=== PATIENT | female | born 1945 | race Caucasian/White ===

== ENCOUNTER 2016-10-27 06:25 | Day surgery (SDC) | payer MEDICARE, MEDICAID ==
[2016-10-21 08:23] VITALS: BMI 33.6
[2016-10-27] MEDS ORDERED: Midazolam 2 MG/2 ML VIAL ONE ×3 (09:54→10:06)
[2016-10-27] MEDS ORDERED: ePHEDrine 50 mg/ml Inj ONE (09:54)
[2016-10-27] MEDS ORDERED: Propofol 10 mg/ml Inj (20 ML) ONE ×2 (10:09→10:16)
[2016-10-27] MEDS ORDERED: Iodixanol 320 MG/ML 100 ML BOTTLE IV ONE (10:32)
[2016-10-27] MEDS ORDERED: Lidocaine 2% Inj (20ml) ONE (10:32)
[2016-10-27] MEDS ORDERED: Iodixanol 320 MG/ML 200 ML BOTTLE IV ONE (10:32)
--- NOTE | 2016-10-27 12:50 | PCM.SURG1 ---
Surgeon's Initial Post Op Note - Surgeon's Notes Surgeon: augustin Head Machinist: 0 Type of Anesthesia: IV Sedation Anesthesia Administered By: evan Pre-Operative Diagnosis: pvd tibial disease Operative Findings: severe tibial disease. peroneal major vessel into foot. severe stenosis /occlusion proximal portion Post-Operative Diagnosis: same Operation Performed: see below Specimen/Specimens Removed: aortofemoral angiogram with selective catherization left leg. pathway atherectomy/ balloom angioplasty/ 3.5x37 carlo to proximal peroneal. perclose right femoaral artery Estimated Blood Loss: EBL {In ML}: 50 Blood Products Given: N/A Drains Used: No Drains Post-Op Condition: Good Date of Surgery/Procedure: 10/27/16 Time of Surgery/Procedure: 12:50
[2016-10-27 17:22] VITALS: RESP 18; TEMP 97
[2016-10-27 17:24] VITALS: BP 127/63; PULSE 65; O2SAT 98
--- NOTE | 2016-10-28 04:33 | OP ---
PROCEDURE DATE: 10/27/2016 PREOPERATIVE DIAGNOSIS: Rest pain, left foot. PROCEDURE: Aortofemoral angiogram of the right groin with selective catheterization of the left femoral artery, pathway atherectomy of the left peroneal artery and balloon angioplasty of this and then subsequent deployment of a 3.5 x 37 mm long drug-eluting stent in the proximal peroneal artery. SURGEON: Dr. Martinez. RESEARCH COORDINATOR: None. TYPE OF ANESTHESIA: Text. ANESTHESIA ADMINISTERED BY: Mr. Saurav CRNA. The patient is an older woman with diabetes, chronic problems of the leg, treated a year ago with successful results, now with recurrent symptoms. OPERATIVE FINDINGS: The aortorenal arteries, iliac arteries, common femoral arteries, superficial femoral arteries were free of significant occlusive disease as well as the profunda femoris. On the right side, detailed pictures were not taken below the level of the proximal tibial vessels which showed that these were patent on the right side. On the left side, all 3 tibial vessels were occluded, the anterior tibial occluded distally, did not reconstitute the foot. The posterior tibial artery occluded distally and did reconstitute distally. The peroneal artery, however, was the main vessel at the foot. Initially, we were able to pass the stiff angle guidewire with aortic bifurcation by positioning the catheter in the distal portion of the femoral popliteal artery. Then using variety of techniques, we were able to cross this lesion using the atherectomy device. The pathway atherectomy device technical problems within on the wire, which required its removal. We then ballooned this with a variety of 2.5 and 3 mm balloons. Subsequent results were suboptimal and in view of the fact that this is a recurrent lesion, we then deployed a 3.5 mm drug-eluting stent in its position with excellent cosmetic results and the procedure was terminated. A Perclose device was then deployed in the right groin. The operation carried out, aortofemoral angiogram with selective catheterization of the left femoral artery. Pathway atherectomy in the left peroneal artery, balloon angioplasty, and following deployment of 3.5 x 37 mm stent in the proximal portion of the peroneal artery. The patient tolerated the procedure uneventfully and a Perclose device was deployed in the right groin. Spenser Martinez Jr., MD cc: Dr. Aponte.
== END 2016-10-27 17:34 | disposition home or self-care (01) ==
LOC: C.SPRAD 06:25
PROVIDERS: ATTEND Surgery Vascular Surgery
DX: I70.222 Atherosclerosis of native arteries of extremities with rest pain, left leg (principal)
CPT/HCPCS: 36247; 37231; 75625; 75716; 75774; 82948; C1724; C1725; C1760; C1766; C1769; C1884; C1887; C1894; J1644; J2250; J2704; J3010; Q9966; Q9967

== ENCOUNTER 2018-01-03 14:22 | Inpatient (IN) | payer MEDICARE, MEDICAID ==
[2018-01-03 14:22] VITALS: BMI 30.6
--- NOTE | 2018-01-03 16:46 | C.PDOC ---
History Of Present Illness 72-year-old female, PMHx of weakness associated with dizziness and increased falls over the past several weeks, pt admitted to medical center and diagnosed with stoke, then however, patients weakness has worsened over last several days, prompting visit. Pt is also complaining of a severe headache. Denies abdominal pain, chest pain, or any other associated symptoms. No other complaints at this time. <Lana Jones - Last Filed: 01/03/18 18:54> History Per: Patient History/Exam Limitations: no limitations Current Symptoms Are (Timing): Still Present <Lana Jones - Last Filed: 01/03/18 18:54> <Dalia Phelps - Last Filed: 01/03/18 19:25> Time Seen by Provider: 01/03/18 16:15 Chief Complaint (Nursing): Weakness/Neurological Deficit Past Medical History Reviewed: Historical Data, Nursing Documentation, Vital Signs Vital Signs: Last Vital Signs Temp 98.4 F 01/03/18 14:31 Pulse 73 01/03/18 14:31 Resp 18 01/03/18 14:31 BP 183/84 H 01/03/18 14:31 Pulse Ox 100 01/03/18 14:31 - Medical History PMH: Gastritis, HTN, Hypercholesterolemia, Pneumonia (3 YRS AGO) Denies: HIV, Chronic Kidney Disease Surgical History: Endoscopy - [facility] Procedures BATH/SHOWER TECHNQ TREATMENT USING ASSIST EQUIPMENT (07/09/17) BED MOBILITY TREATMENT USING ASSIST EQUIPMENT (07/09/17) COMMUNICATIVE/COGNITIVE INTEGRATION SKILLS TREATMENT (07/09/17) DRESSING TECHNIQUES TREATMENT USING ASSIST EQUIPMENT (07/09/17) GAIT TRAINING/FUNCTIONAL AMBULATION TREATMENT (07/09/17) TRANSFER TRAINING TREATMENT USING ASSIST EQUIPMENT (07/09/17) Family History: States: No Known Family Hx - Social History Hx Alcohol Use: No Hx Substance Use: No - Immunization History Hx Tetanus Toxoid Vaccination: No Hx Influenza Vaccination: No Hx Pneumococcal Vaccination: No <Lana Jones - Last Filed: 01/03/18 18:54> Vital Signs: Last Vital Signs Temp 98.4 F 01/03/18 14:31 Pulse 83 01/03/18 18:39 Resp 18 01/03/18 18:39 BP 139/66 01/03/18 18:41 Pulse Ox 100 01/03/18 18:55 - [facility] Procedures BATH/SHOWER TECHNQ TREATMENT USING ASSIST EQUIPMENT (07/09/17) BED MOBILITY TREATMENT USING ASSIST EQUIPMENT (07/09/17) COMMUNICATIVE/COGNITIVE INTEGRATION SKILLS TREATMENT (07/09/17) DRESSING TECHNIQUES TREATMENT USING ASSIST EQUIPMENT (07/09/17) GAIT TRAINING/FUNCTIONAL AMBULATION TREATMENT (07/09/17) TRANSFER TRAINING TREATMENT USING ASSIST EQUIPMENT (07/09/17) <Dalia Phelps - Last Filed: 01/03/18 19:25> Review Of Systems Constitutional: Positive for: Weakness. Negative for: Fever Respiratory: Negative for: Shortness of Breath Gastrointestinal: Negative for: Vomiting Skin: Negative for: Rash Neurological: Negative for: Weakness, Numbness, Headache <Lana Jones - Last Filed: 01/03/18 18:54> Physical Exam - Physical Exam Appears: Non-toxic, No Acute Distress, Chronically Ill Skin: Warm, Dry, No Rash Head: Atraumatic, Normacephalic Eye(s): bilateral: Normal Inspection Nose: Normal Oral Mucosa: Moist Lips: Normal Appearing Neck: Normal ROM Chest: Symmetrical Cardiovascular: Rhythm Regular, No Murmur Respiratory: Normal Breath Sounds, No Accessory Muscle Use Extremity: Pedal Edema (+1 edema, pitting B/L ), Other Pulses: Left Dorsalis Pedis: Normal, Right Dorsalis Pedis: Normal Neurological/Psych: Other (decreased sensation and strength on left leg and arm) <Lana Jones C - Last Filed: 01/03/18 18:54> ED Course And Treatment - Laboratory Results Result Diagrams: 01/03/18 17:04 01/03/18 17:04 ECG: Interpreted By Me, Viewed By Me ECG Rhythm: Sinus Rhythm ECG Interpretation: No Acute Changes Interpretation Of ECG: T wave inversion in 2, 1 and avl. v5 and V6 Rate From EC O2 Sat by Pulse Oximetry: 100 Pulse Ox Interpretation: Normal (RA) <Lana Jones - Last Filed: 01/03/18 18:54> - Laboratory Results Result Diagrams: 01/03/18 17:04 01/03/18 17:04 <Dalia Phelps - Last Filed: 01/03/18 19:25> Medical Decision Making Medical Decision Making: The case was discussed with Dr. Singh who agrees to admit the patient to his service. <Lana Jones - Last Filed: 01/03/18 18:54> Disposition - Disposition Disposition Time: 17:55 <Lana Jones - Last Filed: 01/03/18 18:54> <Dalia Phelps M - Last Filed: 01/03/18 19:25> - Disposition Disposition: HOSPITALIZED Condition: STABLE Instructions: Weakness (ED) Forms: [employer] (Irish) - Clinical Impression Clinical Impression: Dizziness, Unsteady gait, Weakness - Scribe Statement The provider has reviewed the documentation as recorded by the Scribe (Amarilis Junior) All medical record entries made by the Scribe were at my direction and personally dictated by me. I have reviewed the chart and agree that the record accurately reflects my personal performance of the history, physical exam, medical decision making, and the department course for this patient. I have also personally directed, reviewed, and agree with the discharge instructions and disposition. <Lana Jones - Last Filed: 01/03/18 18:54> - PA / INSURANCE BUSINESS ANALYST / Resident Statement / has reviewed & agrees with the documentation as recorded. <Dalia Phelps M - Last Filed: 01/03/18 19:25>
[2018-01-03 17:10] LABS: BASO % 1.1 % (0.0-2.0); EOS # 0.1 K/uL (0.0-0.7); EOS % 1.9 % (0.0-4.0); HEMOGLOBIN 12.5 g/dL (11.0-16.0); LYMPH # 1.8 K/uL (1.0-4.3); LYMPH % 43.6 % (20.0-40.0); MEAN CELL VOLUME 86.4 fL (81.0-99.0); MEAN CORPUSCULAR HEMOGLOBIN 28.2 pg (27.0-31.0); MEAN CORPUSCULAR HGB CONC 32.7 g/dL (33.0-37.0); MEAN PLATELET VOLUME 9.3 fL (7.2-11.7); MONO # 0.4 K/uL (0.0-0.8); NEUT # 1.9 K/uL (1.8-7.0); NEUT % 44.4 % (50.0-75.0); NRBC % 0.1 % (0.0-2.0); RBC 4.43 Mil/uL (3.80-5.20); RED CELL DISTRIBUTION WIDTH 13.1 % (11.5-14.5); WHITE BLOOD COUNT 4.2 K/uL (4.8-10.8)
[2018-01-03 17:18] LABS: PROTHROMBIN TIME 11.4 SECONDS (9.7-12.2)
[2018-01-03 17:25] LABS: ALB/GLOB RATIO 1.6 (1.0-2.1); ALBUMIN 4.4 g/dL (3.5-5.0); ALT/SGPT 17 U/L (9-52); AST/SGOT 14 U/L (14-36); BLOOD UREA NITROGEN 27 mg/dL (7-17); GFR NON-AFRICAN AMERICAN > 60; HDL CHOLESTEROL 50 mg/dL (30-70)
[2018-01-03 17:36] LABS: B-TYPE NATRIURETIC PEPTIDE 63.9 pg/mL (0-900)
[2018-01-03 17:37] LABS: LDL CHOLESTEROL 129 mg/dL (0-129)
--- NOTE | 2018-01-03 17:37 | CT ---
Date of service: 01/03/2018 PROCEDURE: CT HEAD WITHOUT CONTRAST. HISTORY: severe headache COMPARISON: None available. TECHNIQUE: Axial computed tomography images were obtained through the head/brain without intravenous contrast. Radiation dose: Total exam DLP = 1045.29 mGy-cm. This CT exam was performed using one or more of the following dose reduction techniques: Automated exposure control, adjustment of the mA and/or kV according to patient size, and/or use of iterative reconstruction technique. FINDINGS: Streak artifact obscures evaluation of the skull base. HEMORRHAGE: No intracranial hemorrhage. BRAIN: Diffuse atrophy with prominence of the ventricles and sulci noted. No mass effect or edema. Dense intracranial atherosclerosis. Right temporal/parietal lobe hypodense region consistent with encephalomalacia due to chronic ischemia. Acute on chronic ischemia cannot be excluded. Scattered periventricular and subcortical white matter hypodensities, which are nonspecific, but often seen with chronic microvascular ischemic disease. Please note that MRI with diffusion imaging is more sensitive in the detection of acute ischemic event. VENTRICLES: No hydrocephalus. CALVARIUM: Unremarkable. PARANASAL SINUSES: Unremarkable as visualized. No significant inflammatory changes. MASTOID AIR CELLS: Unremarkable as visualized. No inflammatory changes. OTHER FINDINGS: None. IMPRESSION: Right temporal/parietal lobe hypodense region consistent with encephalomalacia due to chronic ischemia. Acute on chronic ischemia cannot be excluded. Please note that MRI with diffusion imaging is more sensitive in the detection of acute ischemic event. Nonspecific white matter changes. Diffuse atrophy with prominence of the ventricles and sulci noted.
--- NOTE | 2018-01-03 17:49 | RAD ---
Date of service: 01/03/2018 HISTORY: Code Stroke COMPARISON: No prior. FINDINGS: LUNGS: No active pulmonary disease. PLEURA: No significant pleural effusion identified, no pneumothorax apparent. CARDIOVASCULAR: No radiographic findings to suggest acute or significant cardiovascular disease. OSSEOUS STRUCTURES: No significant abnormalities. VISUALIZED UPPER ABDOMEN: Normal. OTHER FINDINGS: None. IMPRESSION: No active disease.
[2018-01-03] MEDS ORDERED: Metoprolol 1 mg/ml Inj IVP STA (18:21)
[2018-01-03] MEDS ORDERED: Aspirin 325 mg EC Tablets PO STA (18:32)
[2018-01-03] MEDS ORDERED: Aspirin 325 mg EC Tablets PO ONE (18:38)
[2018-01-04] MEDS ORDERED: Albuterol HFA 90 mcg/actuation (8 g) IH PRN (01:05)
[2018-01-04] MEDS ORDERED: Docusate-Senna 50 mg-8.6 mg Tab PO PRN (01:07)
[2018-01-04] MEDS ORDERED: Fluticasone Nasal 50 mcg/Spray NAS PRN (01:21)
[2018-01-04] MEDS: Levothyroxine 88 MCG TAB PO SCH (06:11)
[2018-01-04 07:38] LABS: BASO # 0.1 K/uL (0.0-0.2); BASO % 1.5 % (0.0-2.0); EOS # 0.1 K/uL (0.0-0.7); EOS % 2.8 % (0.0-4.0); HEMOGLOBIN 12.2 g/dL (11.0-16.0); LYMPH # 1.8 K/uL (1.0-4.3); LYMPH % 46.5 % (20.0-40.0); MEAN CELL VOLUME 86.4 fL (81.0-99.0); MEAN CORPUSCULAR HGB CONC 32.3 g/dL (33.0-37.0); MEAN PLATELET VOLUME 9.3 fL (7.2-11.7); MONO # 0.4 K/uL (0.0-0.8); MONO % 10.8 % (0.0-10.0); NEUT # 1.5 K/uL (1.8-7.0); NEUT % 38.4 % (50.0-75.0); NRBC % 0.1 % (0.0-2.0); RBC 4.37 Mil/uL (3.80-5.20); RED CELL DISTRIBUTION WIDTH 13.3 % (11.5-14.5); WHITE BLOOD COUNT 3.8 K/uL (4.8-10.8)
[2018-01-04 08:05] LABS: ALB/GLOB RATIO 1.6 (1.0-2.1); ALBUMIN 4.1 g/dL (3.5-5.0); ALT/SGPT 17 U/L (9-52); AST/SGOT 23 U/L (14-36); BLOOD UREA NITROGEN 21 mg/dL (7-17); GFR NON-AFRICAN AMERICAN > 60; HDL CHOLESTEROL 47 mg/dL (30-70)
[2018-01-04 08:20] LABS: LDL CHOLESTEROL 128 mg/dL (0-129)
[2018-01-04 08:27] LABS: T4 6.61 ug/dL (5.5-11.0)
[2018-01-04 08:44] LABS: T3 1.47 nmol/L (1.49-2.60)
[2018-01-04] MEDS ORDERED: Pneumococcal 23-Valent Vaccine IM ONE (10:00)
[2018-01-04] MEDS ORDERED: Fluticasone Nasal 50 mcg/Spray NS SCH (10:00)
[2018-01-04] MEDS: Multiple Vitamins Tab PO SCH (10:58)
[2018-01-04] MEDS: Divalproex 500 mg ER Tab PO SCH ×2 (10:58→22:37)
[2018-01-04] MEDS: Pantoprazole 40 mg EC Tab PO SCH (11:12)
[2018-01-04] MEDS: Simethicone 80 mg Chewtab PO SCH ×4 (11:12→22:37)
[2018-01-04] MEDS: (Novolog) Insulin Aspart, Recombinant 100 u/ml 10 ml vial SC SCH ×3 (12:41→22:09)
[2018-01-04] MEDS: Enoxaparin 40 mg Syringe SC SCH (12:41)
--- NOTE | 2018-01-04 14:37 | VASCLAB ---
Date of service: 01/04/2018 PROCEDURE: Carotid Duplex Exam. HISTORY: Dizziness COMPARISON: None available. TECHNIQUE: Grayscale and duplex Doppler evaluation of the cervical carotid and vertebral arteries were performed. The common carotid, carotid bifurcations and cervical Internal Carotid Artery (ICA) and proximal External Carotid Artery (ECA) were evaluated. The vertebral arteries were evaluated for gross patency and flow direction. Report prepared by REUBEN Xie FINDINGS: RIGHT CAROTID ARTERIES: 1. Common Carotid Artery: No significant focal plaque formation of the right common carotid artery. Maximum Peak Systolic velocity: 73 cm/sec: End-diastolic velocity 9 cm/sec. 2. Carotid Bifurcation: plaque formation. Maximum Peak Systolic velocity: 73 cm/sec: End-diastolic velocity 8 cm/sec. 3. Internal Carotid Artery: Plaque description: 3.1. Proximal Segment: Peak systolic velocity 54 cm/sec: End-diastolic velocity 13 cm/sec - % stenosis 0-15% 3.2. Middle Segment: Peak systolic velocity 55 cm/sec: End-diastolic velocity 10 cm/sec - % stenosis 0-15% 3.3. Distal Segment: Peak systolic velocity 58 cm/sec: End-diastolic velocity 11 cm/sec - % stenosis 0-15% 4. External Carotid Artery: No significant focal plaque formation. Peak systolic velocity 87 cm/sec 5. ICA/CCA Ratio: 1.0 LEFT CAROTID ARTERIES: 1. Common Carotid Artery: No significant focal plaque formation of the left common carotid artery. Maximum Peak Systolic velocity: 87 cm/sec: End-diastolic velocity 13 cm/sec. 2. Carotid Bifurcation: Calcific plaque formation. Maximum Peak Systolic velocity: 68 cm/sec: End-diastolic velocity 10 cm/sec. 3. Internal Carotid Artery: Plaque description: Calcific 3.1. Proximal Segment: Peak systolic velocity 64 cm/sec: End-diastolic velocity 14 cm/sec - % stenosis 0-15% 3.2. Middle Segment: Peak systolic velocity 79 cm/sec: End-diastolic velocity 18 cm/sec - % stenosis 0-15% 3.3. Distal Segment: Peak systolic velocity 95 cm/sec: End-diastolic velocity 14 cm/sec - % stenosis 0-15% 4. External Carotid Artery: No significant focal plaque formation. Peak systolic velocity 98 cm/sec 5. ICA/CCA Ratio: 1.1 VERTEBRAL ARTERIES: 1. Right Vertebral Artery: The right vertebral artery flow direction is antegrade. 2. Left Vertebral Artery: The left vertebral artery flow direction is antegrade. OTHER FINDINGS: None. IMPRESSION: RIGHT: Duplex scan does not suggest hemodynamically significant stenosis of the right extracranial carotid arteries. LEFT: Duplex scan does not suggest hemodynamically significant stenosis of the left extracranial carotid arteries.
--- NOTE | 2018-01-04 15:07 | CARD ---
APPROVED REPORT Date of service: 01/04/2018 EXAM: Two-dimensional and M-mode echocardiogram with Doppler and color Doppler. Other Information Quality : GoodRhythm : INDICATION CVA/TIA Dizziness and Vertigo RISK FACTORS Hypertension Hyperlipidemia 2D DIMENSIONS IVSd1.8 (0.7-1.1cm)LVDd3.9 (3.9-5.9cm) PWd1.6 (0.7-1.1cm)LA Zwbdde38 (18-58mL) LVDs2.2 (2.5-4.0cm)FS (%) 42.9 % LVEF (%)74.6 (>50%)LVEF (Blackwell's)75.70 % IVC0.00 cm M-Mode DIMENSIONS RVDd2.05 (2.1-3.2cm)Left Atrium (MM)3.25 (2.5-4.0cm) IVSd1.79 (0.7-1.1cm)Aortic Root2.94 (2.2-3.7cm) LVDd4.10 (4.0-5.6cm)Aortic Cusp Exc.1.87 (1.5-2.0cm) PWd1.46 (0.7-1.1cm)FS (%) 40 % LVDs2.47 (2.0-3.8cm)LVEF (%)71 (>50%) Mitral Valve MV E Zzmlgggm48.6cm/sMV A Sqdepncq42.7cm/sE/A ratio0.5 TDI Lateral E' Peak V4.48cm/sMedial E' Peak V4.62cm/sE/Lateral E'7.9 E/Medial E'7.7 Tricuspid Valve TR Peak Bgjulipt122uj/sTR Peak Gr.73xxCmAWZE11xnOf LEFT VENTRICLE The left ventricle is normal size. There is mild to moderate concentric left ventricular hypertrophy. The left ventricular systolic function is normal. The left ventricular ejection fraction is within the normal range. There is normal LV segmental wall motion. Transmitral Doppler flow pattern is Grade I-abnormal relaxation pattern. RIGHT VENTRICLE The right ventricle is normal size. The right ventricular systolic function is normal. ATRIA The left atrium size is normal. The right atrium size is normal. AORTIC VALVE The aortic valve is normal in structure. No aortic regurgitation is present. There is no aortic valvular stenosis. MITRAL VALVE The mitral valve is normal in structure. There is no mitral valve regurgitation noted. TRICUSPID VALVE The tricuspid valve is normal in structure. There is mild tricuspid regurgitation. Right ventricular systolic pressure is estimated at less than 30 mmHg. PULMONIC VALVE The pulmonary valve is normal in structure. There is mild pulmonic valvular regurgitation. GREAT VESSELS The aortic root is normal in size. The IVC is normal in size and collapses >50% with inspiration. PERICARDIAL EFFUSION There is no pericardial effusion. There is no pericardial effusion. <Conclusion> There is mild to moderate concentric left ventricular hypertrophy. The left ventricular systolic function is normal. Diastolic dysfunction Grade I-abnormal relaxation pattern. The right ventricular systolic function is normal. Mild tricuspid and pulmonic regurgitation. No pericardial effusion.
--- NOTE | 2018-01-04 16:52 | CARD ---
APPROVED REPORT Date of service: 01/03/2018 EKG Measurement Heart [id number] RI 148P [id number] <Conclusion> Non-sinus atrial rhythm - High junctional LVH with repolarization abnormality. Abnormal ECG
--- NOTE | 2018-01-04 20:55 | CON ---
DATE: 01/04/2018 CHIEF COMPLAINT: Generalized weakness and dizziness. HISTORY OF PRESENT ILLNESS: This is a 72-year-old woman with history of hypertension, history of hypercholesterolemia, who came in with worsening weakness especially on the left side, dizziness, and increased falls over the past several weeks. The patient was admitted to [facility] and found to have a right temporoparietal infarct and some mild residual left-sided weakness. However, the patient started to notice that she was more weaker over the past few days and had severe debilitating headache. She had elevated systolic pressure of more than 180. Currently, she has mild residual left-sided weakness from the prior CVA. CAT scan of the head showed encephalomalacia on the right temporoparietal area, likely consistent with a chronic infarct, possible subacute and with chronic ischemic changes. She had elevated BUN and she was mildly dehydrated with some hyperglycemic discolorations and elevated systolic blood pressures. PAST MEDICAL HISTORY: As above. SOCIAL HISTORY: No illicit drug abuse, smoking, or EtOH abuse. FAMILY HISTORY: Noncontributory. MEDICATIONS: Medications reviewed by nurse reconciliation sheet. REVIEW OF SYSTEMS: A 14-point review of systems negative except in the HPI. ALLERGIES: NO KNOWN DRUG ALLERGIES. LABORATORY DATA: Sodium is 139, potassium is 3.9, chloride is 97, carbon dioxide is 29, BUN is 17, creatinine is 0.7, random glucose of 202. A1c is 6.9. Thyroid: Her free T4 is 0.71; T3 is 1.47, which is low; and total TSH is 3.45. PHYSICAL EXAMINATION: VITAL SIGNS: Temperature is 97.8, pulse rate is 61, blood pressure 159/85, respiratory rate is 20, oxygen saturation 100% on room air. GENERAL: The patient is sitting up in bed, in no acute distress. HEENT: Head is atraumatic, normocephalic. PERRLA. Extraocular movements intact. NECK: Supple. No JVD. No adenopathy noted. LUNGS: Clear to auscultation. No adventitious sounds. HEART: S1 and S2. Normal rate and rhythm. No murmurs, rubs, or gallops. ABDOMEN: Soft, nontender, nondistended. Bowel sounds present. EXTREMITIES: No clubbing. No cyanosis. Peripheral pulses are 2+ bilaterally. NEURO: The patient is alert and oriented to person and place. Recall after five minutes is 1/3. Poor attention span. Slow thought process. Cranial nerves II through XII are intact. Motor exam has mild residual left-sided weakness and decreased left finger tap compared to the right from prior CVA. Sensory exam: Decreased light touch to pinprick up to the calves bilaterally, decreased vibration of the toes. DTRs are 2+ throughout and 1 at both knees and ankles. Coordination: Dakfiq-up-sghi intact. No dysmetria noted. Gait is deferred for now. 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 She had elevated systolic blood pressures and hyperglycemic accelerations with an A1c of 6.9, became borderline diabetic. She has hypothyroid, on levothyroxine. I was called to evaluate. CAT scan of the head shows chronic encephalomalacia of the right temporoparietal area indicating prior large infarct which corresponds to the weakness. She also was mildly dehydrated. A prior Doppler showed proximal ICA stenosis with antegrade flow in the vertebral arteries. Echocardiogram shows left ventricular hypertrophy and adequate ejection fraction. At this time, she has residual weakness from prior cerebrovascular accident with some underlying mild neuropathy, which is indicating her poor balance. In addition, the dizziness is blood pressure and hyperglycemic related and is also deconditioned. RECOMMENDATIONS: We will recommend: 1. Keep her systolic blood pressure at 130s to 140s and diastolic 70s to 80s. Avoid dropping the blood pressure too fast. 2. Keep her blood sugars between 140 to 180 and advised a diabetic diet. 3. Aspirin 81 mg, Plavix 75 mg, and Lipitor 40 mg for stroke prevention. 4. Continue with Aricept for cognitive impairment from CVA, 5 mg p.o. nightly. 5. If there is no neuropathic pain, we will consider to hold the gabapentin and give only if needed and will likely need some subacute rehab. At this time, we will get an MRI of the brain to see if any acute infarct and MRI of the head to assess any structural abnormalities in the vessels and PT/OT evaluation. Thank you for this consult. Wilberto Sykes MD [facility] # [id number]
[2018-01-04] MEDS: Insulin Detemir 100 units/ml Vial (Levemir) SC SCH (22:36)
--- NOTE | 2018-01-05 01:35 | CON ---
DATE: 01/04/2018 REASON FOR CONSULTATION: Dizziness and recurrent falls. HISTORY OF PRESENT ILLNESS: The patient is a 72-year-old female, originally from [facility] who is a [employer], who has a history of breast CA in the past, underwent a right mastectomy, history of CVA who left hemiparesis. She presented because of dizziness, headaches, and recurrent falls. The patient has retrosternal chest pain and is unaware of any history of heart attack in the past. SOCIAL HISTORY: The patient is a nonsmoker. She is a [employer]. MEDICATIONS: Hydralazine 20 mg p.o. every 8 hours, Aricept 5 mg at bedtime, aspirin 81 mg once a day, clonidine 0.2 mg daily, Cozaar 100 mg daily, Crestor 40 mg once a day, Depakote 500 mg p.o. twice a day, Flonase one nasal spray p.r.n., metformin 1 g twice a day, Januvia 50 mg twice a day, Lasix 20 mg p.o. once a day, Levemir 10 units subcutaneous at bedtime, Lovenox 40 mg subcutaneous once a day, Neurontin 200 mg p.o. every 6 hours, Norvasc 5 mg once a day, Plavix 75 mg once a day, Synthroid 88 mcg once a day, Topamax 50 mg p.o. every 12 hours, Protonix 40 mg p.o. once a day, albuterol inhaler one puff every 4 hours. REVIEW OF SYSTEMS: The patient denies any history of significant chest pain at this time. At this time, she complains of headache. She denies any nausea or vomiting. PHYSICAL EXAMINATION: GENERAL: The patient is an elderly female who does not appear to be in acute distress. VITAL SIGNS: Blood pressure 169/82, heart rate 61, temperature 98.4, respirations 20. HEENT: No pallor or icterus. NECK: No JVD. CHEST: Clear. HEART: S1 and S2 regular. ABDOMEN: Soft. EXTREMITIES: No edema. LABORATORY DATA: SMA-7, sodium 139, potassium 3.9, chloride 97, CO2 of 29, glucose 102, BUN 21, creatinine 0.7. TSH level is within normal limits. One set of troponin is negative. Hemoglobin and hematocrit 12.2 and 37.8. White count 3.8, platelet count 247,000. EKG revealed ectopic atrial rhythm. Minimal voltage criteria for LVH. T-wave abnormality. Consider lateral ischemia; however, it is most likely repolarization changes in my own review. Head CT scan without contrast revealed right temporoparietal lobe hypodense lesion consistent with encephalomalacia due to chronic ischemia, acute on chronic ischemia cannot be excluded. Please note that MRI with diffuse imaging is more sensitive and of acute ischemic event. ASSESSMENT: 1. Uncontrolled hypertension. 2. Hypothyroidism. 3. History of cerebrovascular accident with residual right temporal parietal lobe encephalomalacia and acute cerebrovascular accident cannot be really excluded on the CAT scan finding itself. 4. Uncontrolled diabetes mellitus. 5. Uncontrolled systolic hypertension. 6. Periods of sinus bradycardia. RECOMMENDATIONS: Continue hydralazine 50 mg p.o. every 8 hours which was started today. Continue aspirin 81 mg once a day. Hold clonidine if heart rate is below 60. Continue Cozaar 100 mg once a day. Continue Lasix 20 mg p.o. once a day, subcutaneous Lovenox 40 mg once a day, Norvasc at 5 mg once a day, Plavix 75 mg once a day, Synthroid 88 mcg once a day. I will follow echocardiographic study performed today. Patrick Liao MD
[2018-01-05] MEDS: Pantoprazole 40 mg EC Tab PO SCH (05:47)
[2018-01-05] MEDS: Levothyroxine 88 MCG TAB PO SCH (06:14)
--- NOTE | 2018-01-05 07:51 | HP ---
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 The patient was complaining of dizziness, refers having difficulty walking, and also the patient had claimed having multiple falls and weakness of the left lower extremity. The patient has few months ago, but had physical therapy in subacute, but, however, the patient recently started having this dizziness, and in the floor, the patient was advised to go to the emergency room for evaluation and to be admitted. ALLERGY: THE PATIENT HAS NO KNOWN ALLERGY. PAST MEDICAL HISTORY: The patient has history of CVA, hypertension, diabetes, dementia, questionable seizure, and chronic kidney disease. SOCIAL HISTORY: The patient is in [employer] as a [employer] and has no history of smoking or alcohol abuse. PAST SURGICAL HISTORY" The patient has other past history of right mastectomy for breast CA and also cardiac cauterization, and also the patient had stent to the left popliteal arteries. FAMILY HISTORY: No inherited disease. REVIEW OF SYSTEMS: RESPIRATORY SYSTEM: The patient denied any shortness of breath. CARDIOVASCULAR: The patient admits to having some palpitation at times. GI: No nausea or vomiting. : No dysuria. NEURO: The patient is feeling weak, and also multiple falls, and the patient at times is forgetful. PHYSICAL EXAMINATION: GENERAL: The patient is alert and awake, but confused and forgetful at times. VITAL SIGNS: Blood pressure is 167/71 at admission, pulse is 55, respirations 20, temperature 98.2. HEENT: Head is normocephalic. NECK: Supple. No JVD. CHEST: She has a left mastectomy, so there is a wire for in the chest. LUNGS: Clear. HEART: Regular rate and rhythm, large murmur noted, mostly at the left border of the sternum. ABDOMEN: Soft, nontender. EXTREMITIES: There is no edema. LABORATORY DATA: The patient had the tests done. WBC 4.2, hemoglobin 12.7, hematocrit 38.3, and platelets are 248. Chemistry: Sodium 139, potassium 3.9, chloride 97, bicarb is 29, BUN 21, creatinine 0.7, glucose 202, calcium 10, AST 23, ALT 17, alkaline phosphatase 235, and TSH is 245, HDL Cholesterol 47, and free T4 is 0.71. The patient also had CT of the head. CT of the head that showed a thick artifact obscured evaluation . No intracranial hemorrhage, and the carotid Doppler is within normal limits and the echocardiogram is showing ejection fraction of 71%. IMPRESSION: The patient was admitted with diagnoses of: 1. Dizziness. 2. Multiple falls. 3. Cerebrovascular accident. 4. Hypertension. 5. Dementia. 6. Coronary artery disease. 7. Peripheral vascular disease. 8. Diabetes. 9. Seizure. The patient had a neuro consult with Dr. Sykes and also had a cardiology consult with Dr. Liao. The case was discussed with KYLIE Epps, the nurse practitioner. Eduard Singh MD
[2018-01-05] MEDS: (Novolog) Insulin Aspart, Recombinant 100 u/ml 10 ml vial SC SCH ×4 (08:30→21:38)
[2018-01-05] MEDS: Simethicone 80 mg Chewtab PO SCH ×4 (09:36→21:37)
[2018-01-05] MEDS: Multiple Vitamins Tab PO SCH (09:36)
[2018-01-05] MEDS: Divalproex 500 mg ER Tab PO SCH (09:37)
[2018-01-05] MEDS: Enoxaparin 40 mg Syringe SC SCH (09:38)
[2018-01-05] MEDS ORDERED: Influenza Vaccine 60 MCG/0.5 ML SYR (3 yr & up) IM ONE (10:00)
--- NOTE | 2018-01-05 21:09 | PN ---
DATE: 01/05/2018 SUBJECTIVE: The patient denied any dizziness or chest pain. PHYSICAL EXAMINATION: VITAL SIGNS: Blood pressure 147/69, heart rate 70, temperature 98.2, respirations 20. HEENT: Loss of left nasolabial fold. CHEST: Clear. HEART: S1, S2 regular. ABDOMEN: Soft. EXTREMITIES: No edema. LABORATORIES: Today's blood sugars were 143 and 173. Carotid Doppler duplex revealed no hemodynamically significant stenosis of the right or left extracranial carotid arteries. ASSESSMENT: 1. History of cerebrovascular accident with residual right temporoparietal lobe encephalomalacia, residual left hemiplegia. 2. Rule out acute cerebrovascular accident. 3. Uncontrolled diabetes mellitus. 4. Systolic hypertension. 5. Episodes of sinus bradycardia. 6. Hypothyroidism. RECOMMENDATIONS: Continue hydralazine 50 mg p.o. every 8 hours, Aricept 5 mg once a day, aspirin 81 mg once a day, Cozaar 100 mg once a day, Crestor 40 mg once a day, metformin at 1 g twice a day, clonidine 0.2 mg orally daily, Januvia 50 mg p.o. twice a day, Lovenox 40 mg subcutaneous once a day, Neurontin 200 mg every 6 hours, Norvasc 5 mg once a day, Plavix 75 mg once a day, Topamax 50 mg p.o. twice a day, albuterol inhaler 1 puff every 4 hours p.r.n. Because of the patient's recent loop monitor placement by Dr. Salcedo [facility], brain MRI will be postponed until the patient is evaluated by Dr. Salcedo. In the meantime, I did review the echocardiographic study report, which revealed [id number] concentric LVH with normal ejection fraction with grade 1 abnormal relaxation pattern. Patrick Liao MD
[2018-01-05] MEDS: Insulin Detemir 100 units/ml Vial (Levemir) SC SCH (21:36)
[2018-01-05] MEDS: Divalproex 500 mg DR Tab PO SCH (23:54)
--- NOTE | 2018-01-06 00:12 | PN ---
DATE: 01/05/2018 SUBJECTIVE: Today, the patient is somewhat drowsy, not responding well to questions and stating that she does not feel good and complaining of some weakness to right side of the face and dizziness. PHYSICAL EXAMINATION: VITAL SIGNS: The patient has a blood pressure of 123/71, but later on the blood pressure is 92/50; pulse is 55, respiration is 20; temperature 98.1. NECK: Supple. HEENT: Head is normocephalic. Face, there is some drooling of the right side of the face. LUNGS: Clear. HEART: Regular rate and rhythm. ABDOMEN: Soft and nontender. No possible mass. EXTREMITIES: There is no edema, but there is a weakness in the right side, right hemiparesis. LABORATORY DATA: The patient has a test done. WBC is 3.8, hemoglobin is 12.2, hematocrit 37.8, platelets are 247. Also, the patient has other tests done. ASSESSMENT AND PLAN: Has an echocardiogram done that was as I mentioned yesterday ejection fraction of 75.7%. So, the plan is that electrocardiogram is ordered. Also, we are going to consider physical therapy. Cardiology consult is done. MRI of the brain is not done yet. Also, neurological service is appreciated. We prescribed physical therapy and discussed with Amanda Haider, the nurse practitioner. Eduard Singh MD
[2018-01-06] MEDS: Levothyroxine 88 MCG TAB PO SCH (05:57)
[2018-01-06] MEDS: Pantoprazole 40 mg EC Tab PO SCH (05:57)
[2018-01-06] MEDS: (Novolog) Insulin Aspart, Recombinant 100 u/ml 10 ml vial SC SCH ×4 (08:01→22:01)
[2018-01-06] MEDS: Simethicone 80 mg Chewtab PO SCH ×4 (09:20→22:18)
[2018-01-06] MEDS: Enoxaparin 40 mg Syringe SC SCH (09:20)
[2018-01-06] MEDS: Multiple Vitamins Tab PO SCH (09:20)
[2018-01-06] MEDS: Divalproex 500 mg DR Tab PO SCH ×2 (09:21→22:18)
--- NOTE | 2018-01-06 09:36 | CP.PCM.PN ---
Subjective - Date & Time of Evaluation Date of Evaluation: 01/05/18 Time of Evaluation: 14:00 - Subjective Subjective: Patient seen today with Dr. Singh, Objective - Vital Signs/Intake and Output Vital Signs (last 24 hours): Temp Pulse Resp BP Pulse Ox 98.1 F 48 L 20 137/60 98 01/06/18 08:09 01/06/18 08:09 01/06/18 08:09 01/06/18 09:20 01/06/18 08:09 Intake and Output: 01/06/18 01/06/18 06:59 18:59 Intake Total 250 Balance 250 - Medications Medications: Current Medications Albuterol (Ventolin Hfa 90 Mcg/Actuation (8 G)) 1 puff IH Q4 PRN PRN Reason: Wheezing Amlodipine Besylate (Norvasc) 5 mg PO DAILY [facility] Last Admin: 01/06/18 09:20 Dose: 5 mg Aspirin (Aspirin Chewable) 81 mg PO DAILY [facility] Last Admin: 01/06/18 09:19 Dose: 81 mg Clopidogrel Bisulfate (Plavix) 75 mg PO DAILY [facility] Last Admin: 01/06/18 09:19 Dose: 75 mg Divalproex Sodium (Depakote Dr) 500 mg PO Q12 [facility] Last Admin: 01/06/18 09:21 Dose: 500 mg Donepezil HCl (Aricept) 5 mg PO HS [facility] Last Admin: 01/05/18 21:37 Dose: 5 mg Enoxaparin Sodium (Lovenox) 40 mg SC DAILY [facility] Last Admin: 01/06/18 09:20 Dose: 40 mg Fluticasone Propionate (Flonase) 1 spr TITUS PRN PRN PRN Reason: Allergy symptoms Furosemide (Lasix) 20 mg PO DAILY [facility] Last Admin: 01/06/18 09:20 Dose: 20 mg Gabapentin (Neurontin) 200 mg PO Q6 [facility] Last Admin: 01/06/18 05:57 Dose: 200 mg Hydralazine HCl (Apresoline) 50 mg PO Q8 [facility] Last Admin: 01/06/18 05:51 Dose: Not Given Insulin Aspart (Novolog) 1 unit SC [facility]; Protocol Last Admin: 01/06/18 08:01 Dose: Not Given Insulin Detemir (Levemir) 10 unit SC [facility] Last Admin: 01/05/18 21:36 Dose: 10 units Levothyroxine Sodium (Synthroid) 88 mcg PO DAILY@0630 [facility] Last Admin: 01/06/18 05:57 Dose: 88 mcg Losartan Potassium (Cozaar) 100 mg PO DAILY [facility] Last Admin: 01/06/18 09:20 Dose: 100 mg Metformin HCl (Glucophage) 1,000 mg PO BIDCC [facility] Last Admin: 01/06/18 08:21 Dose: 1,000 mg Multivitamins (Hexavitamin) 1 tab PO DAILY [facility] Last Admin: 01/06/18 09:20 Dose: 1 tab Pantoprazole Sodium (Protonix Ec Tab) 40 mg PO 0630 [facility] Last Admin: 01/06/18 05:57 Dose: 40 mg Rosuvastatin Calcium (Crestor) 40 mg PO HS [facility] Last Admin: 01/05/18 21:37 Dose: 40 mg Senna/Docusate Sodium (Senokot S 50 Mg-8.6 Mg) 1 tab PO PRN PRN PRN Reason: Constipation Simethicone (Mylicon Chew Tab) 80 mg PO HS [facility] Last Admin: 01/05/18 21:37 Dose: 80 mg Simethicone (Mylicon Chew Tab) 80 mg PO PC [facility] Last Admin: 01/06/18 09:20 Dose: 80 mg Sitagliptin Phosphate (Januvia) 50 mg PO BID [facility] Last Admin: 01/06/18 09:19 Dose: 50 mg Topiramate (Topamax) 50 mg PO Q12 [facility] Last Admin: 01/06/18 09:21 Dose: 50 mg - Labs Labs: 01/04/18 07:30 01/04/18 07:30 PT 11.4 SECONDS (9.7-12.2) 01/03/18 17:04 INR 1.0 01/03/18 17:04 APTT 31 SECONDS (21-34) 01/03/18 17:04 Assessment and Plan - Assessment and Plan (Free Text) Assessment: A/P 72-year-old female, PMHx HTN, Hypercholesterolemia and recent CVA admitted with increasing weakness associated with dizziness and increased falls over the past several weeks Patient seen today with Dr. iSngh, patient is somewhat lathargic, c/o weakness and dizziness. as per Dr. Singh her weakness and left side drooping getting worse than previous and would like to do MRI also neuro Dr. Sykes recommends MRI Patient has a loop recorded placed recently by Dr. Salcedo and MRI needs clearance D/W with Dr. Salcedo to proceeds with some instructions - Instructions were discussed with wildlife technician and they will do it with the instructions but needs the form to be signed by MD..d/w Dr. Salcedo and form placed in the chart The above plan discussed with Dr. Singh
[2018-01-06 11:50] LABS: BASO # 0.1 K/uL (0.0-0.2); BASO % 1.8 % (0.0-2.0); EOS # 0.1 K/uL (0.0-0.7); HEMOGLOBIN 12.3 g/dL (11.0-16.0); LYMPH # 1.7 K/uL (1.0-4.3); MEAN CORPUSCULAR HEMOGLOBIN 28.8 pg (27.0-31.0); MEAN CORPUSCULAR HGB CONC 33.5 g/dL (33.0-37.0); MEAN PLATELET VOLUME 9.2 fL (7.2-11.7); MONO # 0.4 K/uL (0.0-0.8); MONO % 9.6 % (0.0-10.0); NEUT # 1.5 K/uL (1.8-7.0); NEUT % 40.6 % (50.0-75.0); RBC 4.26 Mil/uL (3.80-5.20); RED CELL DISTRIBUTION WIDTH 12.5 % (11.5-14.5); WHITE BLOOD COUNT 3.7 K/uL (4.8-10.8)
[2018-01-06 12:21] LABS: BLOOD UREA NITROGEN 23 mg/dL (7-17); CALCIUM 9.6 mg/dl (8.6-10.4); GFR NON-AFRICAN AMERICAN > 60
--- NOTE | 2018-01-06 15:34 | MRI ---
Date of service: 01/06/2018 PROCEDURE: Magnetic Resonance Angiography Brain HISTORY: Dizziness COMPARISON: None available. TECHNIQUE: 3D time of flight MR angiography of the intracranial arteries was performed. Rotating maximum intensity projection images were generated. FINDINGS: INTERNAL CAROTID ARTERIES: The skull base, petrous, cavernous and supraclinoid segments are bilaterally widely patient. ANTERIOR CEREBRAL ARTERIES: Unremarkable. A1 and A2 segments are widely patent. Smaller distal branches unremarkable, as visualized. MIDDLE CEREBRAL ARTERIES: There is complete occlusion of the right middle cerebral artery approximately 8 mm distal to its origin. The left M1 and M2 segments are widely patent. The left perisylvian branches are patent and normal in caliber. POSTERIOR CIRCULATION: Basilar Artery: Hypoplastic basilar artery with multifocal narrowing. Distal Vertebral Arteries: The right vertebral artery is severely hypoplastic. The left vertebral artery is dominant and patent. Posterior Cerebral Arteries: There is origin of bilateral posterior cerebral arteries. Posterior Inferior Cerebellar Arteries: Not well-visualized. ANEURYSM/ VASCULAR MALFORMATIONS: None. OTHER FINDINGS: None. IMPRESSION: 1. 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 2. origin of bilateral posterior cerebral arteries with hypoplastic vertebrobasilar system. Hypoplastic basilar artery with multifocal narrowing likely related to underlying atherosclerosis. 3. Severely hypoplastic right vertebral artery which may be an anatomic variant however underlying atherosclerosis is also a consideration.
--- NOTE | 2018-01-06 17:19 | PN ---
DATE: 01/06/2018 SUBJECTIVE: The patient denies any dizziness. She complains of headaches. PHYSICAL EXAMINATION: VITAL SIGNS: Blood pressure 137/60, heart rate 48, temperature 98.1, respirations 20. HEENT: Loss of left nasolabial fold. CHEST: Clear. HEART: S1 and S2 regular. EXTREMITIES: With no edema. LABORATORY DATA: Today's SMA-7; sodium , chloride 94, CO2 of 27, glucose 114, BUN 23, creatinine 0.9. Calcium is 9.6. Today's hemoglobin and hematocrit 12.3 and 36.7, white count 3.7, platelet count 156,000. ASSESSMENT: 1. Sinus bradycardia. 2. History of cerebrovascular accident with residual right temporoparietal encephalomalacia. The patient has residual left hemiplegia, rule out recurrent cerebrovascular accident . 3. Hypertension. RECOMMENDATIONS: Continue Cozaar 100 mg once a day, Crestor 40 mg once a day, Lasix 20 mg once a day, Lovenox 40 mg subcutaneously once a day, Norvasc at 5 mg once a day, clonidine, which was discontinued which I agree with in view of worsening bradycardia. I will follow the EEG results and the patient will be evaluated by Dr. Salcedo, her shaft sinker. Patrick Liao MD
--- NOTE | 2018-01-06 17:43 | MRI ---
Date of service: 01/06/2018 PROCEDURE: MRI BRAIN WITHOUT CONTRAST HISTORY: DIZZINESS COMPARISON: Comparison made with prior CT scan of the brain 01/03/2018. Correlation also made with concurrent MRA of the brain. TECHNIQUE: Multiplanar, multisequence MR images of the brain were obtained without intravenous contrast enhancement. FINDINGS: HEMORRHAGE: No acute parenchymal, subarachnoid or extra-axial hemorrhage. No evidence of hemosiderin deposition identified on gradient echo weighted sequence. DWI: No evidence of an acute or early subacute infarction. BRAIN PARENCHYMA: Chronic appearing infarct changes scattered throughout the right posterior temporal lobe extending superiorly into the right parietal operculum with involvement of the right posterior frontal lobe as well. Changes involve the lateral aspect of the right basal ganglia. The. In addition, there are some minor diffuse and confluent chronic periventricular white matter ischemic changes which extend peripherally into the deep white matter both cerebral hemispheres. Multiple tiny chronic appearing lacunar type infarcts scattered about the deep and subcortical white matter and both basal nuclei also seen.. Additionally, there also appears to be subtle minimal brainstem ischemic changes. Moderate generalized volume loss. VENTRICLES: No obstructive hydrocephalus.. Note made of cavum velum interpositum. CRANIUM: Unremarkable. ORBITS: Grossly unremarkable. PARANASAL SINUSES/MASTOIDS: Clear VASCULAR SYSTEM: Visualized major vascular flow voids skull base patent. OTHER FINDINGS: None. IMPRESSION: No acute intracranial hemorrhage or infarction. There are chronic infarct changes involving portions of the right temporal, right parietal and right posterior frontal lobes as well as right lateral basal ganglia. Minor chronic periventricular white matter ischemic changes with scattered chronic appearing bilateral basal nuclei lacunar type infarcts. Additionally, there also appears to be subtle minimal brainstem ischemic changes Moderate generalized volume loss.
[2018-01-06] MEDS: Insulin Detemir 100 units/ml Vial (Levemir) SC SCH (22:01)
[2018-01-07] MEDS: Pantoprazole 40 mg EC Tab PO SCH (06:20)
[2018-01-07] MEDS: Levothyroxine 88 MCG TAB PO SCH (06:20)
[2018-01-07] MEDS: (Novolog) Insulin Aspart, Recombinant 100 u/ml 10 ml vial SC SCH ×3 (08:17→21:35)
[2018-01-07] MEDS: Simethicone 80 mg Chewtab PO SCH ×4 (10:16→21:34)
[2018-01-07] MEDS: Enoxaparin 40 mg Syringe SC SCH (11:00)
[2018-01-07] MEDS: Multiple Vitamins Tab PO SCH (11:00)
[2018-01-07] MEDS: Divalproex 500 mg DR Tab PO SCH ×2 (12:00→21:34)
--- NOTE | 2018-01-07 21:23 | PN ---
DATE: 01/07/2018 FOLLOWUP SUBJECTIVE: The patient denies chest pain. She complains of headache. PHYSICAL EXAMINATION: VITAL SIGNS: Blood pressure 108/63, heart rate 53, temperature 97.6, respirations 20. HEENT: Normocephalic. CHEST: Clear. HEART: S1 and S2, regular. EXTREMITIES: No edema. DIAGNOSTIC DATA: Brain MRI: No acute intracranial hemorrhage or infarct. There are chronic infarct changes involving the portions of the right temporal, right parietal, right posterior frontal lobes as well as right lateral basal ganglia. Mild chronic periventricular white matter changes. Head MRA: Complete occlusion of the right M1 segment approximately 8 mm from the origin. origin of bilateral posterior cerebral arteries with hypoplastic , severely hyperplastic right vertebral artery which may be anatomic variant of underlying atherosclerosis is a consideration. ASSESSMENT: 1. Sinus bradycardia. 2. Uncontrolled hypertension. 3. History of cerebrovascular accident involving the right temporoparietal and posterior frontal lobe and posterior right frontal lobe lesion as well as right basal ganglia. RECOMMENDATIONS: Continue Aricept 5 mg once a day, aspirin 81 mg once a day, Cozaar 100 mg once a day, metformin 1 g twice a day, Lovenox 20 g once a day. Increase amlodipine to 10 mg daily. Continue Lasix at 20 mg orally once a day. Continue Plavix 75 mg once a day. Patrick Liao MD
[2018-01-07] MEDS: Insulin Detemir 100 units/ml Vial (Levemir) SC SCH (21:34)
[2018-01-08 01:30] VITALS: RESP 20
--- NOTE | 2018-01-08 05:22 | PN ---
DATE: 01/07/2018 SUBJECTIVE: The patient was seen earlier this afternoon of 01/07/2018. The patient was complaining of some weakness in the left lower extremity and also had dizziness. PHYSICAL EXAMINATION: VITAL SIGNS: The patient has blood pressure that was 150/80, pulse rate is 75. NECK: Supple. FACE: There is a drooling on the left side of the face. ABDOMEN: Soft. EXTREMITIES: There was no edema but there was weakness in the left lower extremity. The patient has some difficulty to stand. The patient's case was studied and reviewed with Amanda Haider, the nurse practitioner, and plan would be start physical therapy. MRI of the brain was done, and there was no new infarct. Eduard Singh MD
[2018-01-08] MEDS: Pantoprazole 40 mg EC Tab PO SCH (05:42)
[2018-01-08] MEDS: Levothyroxine 88 MCG TAB PO SCH (05:42)
[2018-01-08] MEDS: (Novolog) Insulin Aspart, Recombinant 100 u/ml 10 ml vial SC SCH ×3 (08:30→21:35)
[2018-01-08] MEDS: Simethicone 80 mg Chewtab PO SCH ×4 (09:32→21:31)
[2018-01-08] MEDS: Divalproex 500 mg DR Tab PO SCH ×2 (09:33→21:31)
[2018-01-08] MEDS: Multiple Vitamins Tab PO SCH (09:34)
[2018-01-08] MEDS: Enoxaparin 40 mg Syringe SC SCH (09:39)
[2018-01-08] MEDS: Insulin Detemir 100 units/ml Vial (Levemir) SC SCH (21:31)
--- NOTE | 2018-01-08 23:37 | PN ---
DATE: 01/08/2018 SUBJECTIVE: The patient is depressed and weeping. She denies any headache or chest pain. PHYSICAL EXAMINATION: VITAL SIGNS: Blood pressure 159/77, heart rate 70, temperature 99, and respirations 20. HEENT: Loss of left nasolabial fold. CHEST: Clear. HEART: S1, S2, regular. EXTREMITIES: No edema. LABORATORY DATA: Today's blood sugar 123 and 108. ASSESSMENT: 1. Improved sinus bradycardia. 2. Hypertension. 3. History of cerebrovascular accident involving the right temporoparietal and posterior frontal lobe territory as well as right basal ganglia infarcts. 4. Depression. RECOMMENDATIONS: Continue hydralazine 50 mg every 8 hours, Aricept 5 mg at bedtime, aspirin 81 mg once a day, Cozaar 100 mg once a day, Crestor mg once a day, Depakote 500 mg p.o. twice a day, metformin 1 g twice a day, Lovenox 40 mg subcutaneous once a day, Plavix 75 mg once a day, Synthroid 88 mcg once a day, albuterol inhaler 1 puff every 4 hours p.r.n. Patrick Liao MD
--- NOTE | 2018-01-09 00:29 | PN ---
DATE: 01/08/2018 SUBJECTIVE: Today, the patient is alert and awake. She complained no significant pain to the feet. Denies any shortness of breath. No chest pain. She is complaining of headache at some time and dizziness. PHYSICAL EXAMINATION: VITAL SIGNS: The patient has a blood pressure of 144/78, pulse 62 to 68, respirations 20, temperature 98.3. HEENT: Head is normocephalic. There is drooling in the left side of the face. LUNGS: Clear. HEART: Regular rate and rhythm. ABDOMEN: Soft and nontender. EXTREMITIES: There is no edema, but there is weakness on the left lower extremity. ASSESSMENT AND PLAN: The plan is that we are going to continue her current medications and physical therapy and consider subacute rehabilitation. Eduard Singh MD
[2018-01-09] MEDS: Pantoprazole 40 mg EC Tab PO SCH (05:56)
[2018-01-09] MEDS: Levothyroxine 88 MCG TAB PO SCH (05:56)
[2018-01-09 06:30] LABS: BASO % 1.2 % (0.0-2.0); EOS # 0.1 K/uL (0.0-0.7); EOS % 2.4 % (0.0-4.0); HEMOGLOBIN 11.7 g/dL (11.0-16.0); LYMPH # 1.8 K/uL (1.0-4.3); LYMPH % 44.8 % (20.0-40.0); MEAN CELL VOLUME 85.6 fL (81.0-99.0); MEAN CORPUSCULAR HEMOGLOBIN 27.8 pg (27.0-31.0); MEAN CORPUSCULAR HGB CONC 32.5 g/dL (33.0-37.0); MEAN PLATELET VOLUME 8.8 fL (7.2-11.7); MONO # 0.5 K/uL (0.0-0.8); MONO % 13.1 % (0.0-10.0); NEUT # 1.6 K/uL (1.8-7.0); NEUT % 38.5 % (50.0-75.0); RBC 4.2 Mil/uL (3.80-5.20); RED CELL DISTRIBUTION WIDTH 12.9 % (11.5-14.5); WHITE BLOOD COUNT 4.1 K/uL (4.8-10.8)
[2018-01-09 06:47] LABS: ALB/GLOB RATIO 1.6 (1.0-2.1); ALBUMIN 3.8 g/dL (3.5-5.0); ALT/SGPT 16 U/L (9-52); AST/SGOT 19 U/L (14-36); BLOOD UREA NITROGEN 17 mg/dL (7-17); CALCIUM 9.9 mg/dl (8.6-10.4); GFR NON-AFRICAN AMERICAN > 60; HDL CHOLESTEROL 41 mg/dL (30-70)
[2018-01-09 06:57] LABS: LDL CHOLESTEROL 96 mg/dL (0-129)
--- NOTE | 2018-01-09 07:00 | PN ---
DATE: 01/06/2018 SUBJECTIVE: Today, the patient is alert and awake, but still confused and complaining of dizziness and weakness of the left lower extremity. Negative chest pain. PHYSICAL EXAMINATION: VITAL SIGNS: The patient has a blood pressure of 125/60, pulse is 69, respiration is 20; temperature 97.7. HEENT: Head is normocephalic. There is a drooling on the right side of the face. NECK: Supple. LUNGS: Clear. HEART: Regular rate and rhythm. Bradycardia. ABDOMEN: Soft and nontender. No palpable mass. CHEST: Has right mastectomy. EXTREMITIES: There is no edema. NEUROLOGIC: There is a weakness in the left, hemiparesis. Also, there is a weakness in the right of the face. ASSESSMENT AND PLAN: The patient has a consult with Dr. Liao and a followup and also a consult with Dr. Sykes. So, the plan is that we are going to do an EKG, is ordered and also an MRI. It is not done yet. Also, we are going to have an MRI done. Also, we are going to have the physical therapy. if possible, subacute rehabilitation. The case was reviewed and discussed with Amanda Haider, the nurse practitioner. Eduard Singh MD
[2018-01-09] MEDS: Multiple Vitamins Tab PO SCH (10:38)
[2018-01-09] MEDS: Simethicone 80 mg Chewtab PO SCH (10:39)
[2018-01-09] MEDS: Divalproex 500 mg DR Tab PO SCH (10:40)
[2018-01-09] MEDS: Enoxaparin 40 mg Syringe SC SCH (10:40)
--- NOTE | 2018-01-09 10:41 | PCM.EEG ---
Electroencephalogram Report - Electroencephalogram Report Procedure Date: 01/06/18 Condition of Recording: Awake, Drowsy Medication: None listed Interpretation: Technical Information: This was a 21 -channel EEG, 1-channel EKG routine EEG performed using an [employer] equipment . Electrodes were applied using the 10/20 international placement system. Clinical Information: 72 y/o woman with dizziness and falls EEG Detail: During active states, the EEG contained symmetric 10-20 Hz,20-30 uV activity seen bi-frontally. . During resting wakefulness there was a symmetric posterior dominant rhythm at 7.5 Hz, 30-50 uV, which was reactive to eye opening and closing. . Drowsiness was associated with fragmentation of the posterior dominant rhythm and with slow roving eye movements. There was intermittent bi frontal slowing. Hyperventilation was not performed. Photic stimulation was performed and there were no changes on the record. Interictal activity; none Focal abnormality; none Impression: This is an abnormal EEG record that demonstrate the presence of a mild non specific diffuse disturbance of cortical activity, this is keeping with a diffuse mendoza matter dysfunction, these findings are not specific.
[2018-01-09 15:59] VITALS: BP 154/72; PULSE 79; TEMP 98.1; O2SAT 98
--- NOTE | 2018-01-09 17:50 | CP.PCM.PN ---
Subjective - Date & Time of Evaluation Date of Evaluation: 01/09/18 Time of Evaluation: 11:00 - Subjective Subjective: ALERT, ORIENTED, DENIES PAIN OR DISTRESS, STABLE. Objective - Vital Signs/Intake and Output Vital Signs (last 24 hours): Temp Pulse Resp BP Pulse Ox 98.1 F 79 20 154/72 H 98 01/09/18 15:00 01/09/18 15:00 01/09/18 15:00 01/09/18 15:00 01/09/18 15:00 Intake and Output: 01/09/18 01/09/18 06:59 18:59 Intake Total 120 Balance 120 - Labs Labs: 01/09/18 06:23 01/09/18 06:23 PT 11.4 SECONDS (9.7-12.2) 01/03/18 17:04 INR 1.0 01/03/18 17:04 APTT 31 SECONDS (21-34) 01/03/18 17:04 Assessment and Plan - Assessment and Plan (Free Text) Assessment: Patient admitted with intractable dizziness and unsteady gait, h/o previous CVA, seen and examined. Cleared by DR Sanders for discharge to [facility] for PT/OT as tolerated.
--- NOTE | 2018-01-09 21:44 | PN ---
DATE: 01/09/2018 SUBJECTIVE: The patient is happy today, has difficulty expressing herself, does not appears to be in any respiratory distress. PHYSICAL EXAMINATION: VITAL SIGNS: Blood pressure 154/72, heart rate 79, temperature 98.1, respirations 20. HEENT: Normocephalic. CHEST: Clear. HEART: S1 and S2 regular. EXTREMITIES: Left hemiparesis. LABORATORY DATA: Today's SMA-7 is entirely within normal limits. Today's hemoglobin and hematocrit are 11.7 and 36, white count 4.1, platelet count 225,000. EEG, abnormal EEG that demonstrate the presence of mild nonspecific diffuse disturbance of cortical activity diffuse mendoza matter dysfunction. These findings are nonspecific. ASSESSMENT: 1. Improved sinus bradycardia. 2. History of recent cerebrovascular accident with residual left hemiplegia. 3. Hypertension. 4. Depression. RECOMMENDATIONS: The case was discussed with Dr. Eduard Singh, the primary physician. The patient will be maintained on hydralazine 50 mg every 8 hours, Aricept 5 mg once a day, aspirin 81 mg once a day, Cozaar 100 mg once a day, Crestor at 40 mg once a day, Depakote at 500 mg p.o. every 12 hours, Glucophage 1 g twice a day, Lasix 20 mg once a day, Lovenox 40 mg subcutaneously once a day, Norvasc at 10 mg once a day, Plavix 75 mg once a day, Synthroid 88 mcg once a day, albuterol inhaler every 4 hours p.r.n. The plan is to send the patient to rehab and then to the con[facility], and according to Dr. Singh, the chief sister will arrive from [facility] for possible accepting the patient in a convent in [facility] as a permanent resident. Patrick Liao MD
--- NOTE | 2018-01-09 22:48 | PN ---
DATE: 01/09/2018 SUBJECTIVE: This patient today is more alert and awake but she is complaining of some dizziness at time and weakness of the left lower extremity; and denies any chest pain, palpitation, or dizziness. PHYSICAL EXAMINATION: VITAL SIGNS: The patient has a blood pressure of 154/72, pulse 79, respirations 20, temperature 98.1. NECK: Supple. FACE: There is some drooling on the left side of the face. LUNGS: Clear. HEART: Regular rate and rhythm. ABDOMEN: Soft and nontender. No palpable mass. EXTREMITIES: There is a weakness in the left upper extremity and left . There is unsteady gait with tendency to fall. ASSESSMENT AND PLAN: The plan is that we consider to do physical therapy, and we will consider to transfer the patient to [facility] for physical therapy. Eduard Singh MD
--- NOTE | 2018-01-10 07:55 | DS ---
HISTORY OF PRESENT ILLNESS: This is a 72-year-old female, jose, who came to my office. The patient was complaining of dizziness and fall. She stated that she fell many times. The patient also was complaining of weakness in the left side of the body. The patient has a past history of CVA. HOSPITALIZATION COURSE: The patient was admitted to the hospital and has a consult with Dr. Liao of Cardiology and also with Dr. Sykes of Neurology. On physical exam, we found that the patient had weakness in the right side of the face and weakness in the left arm and left lower extremity; and also the patient was found to have dizziness and noted an incidental fall and also altered mental status. The patient had some tests done including EEG, MRI, MRA, echocardiogram, carotid Doppler, CT of the head and chest x-ray. The patient had . The patient now in the physical therapy, and we are going to send this patient to [facility] to consider physical therapy. Eduard Singh MD
== END 2018-01-09 16:35 | DRG 149 ==
LOC: C.ER 14:22 → C.9E 18:33 → C.6T 19:38
PROVIDERS: ADMIT Specialist; ATTEND Specialist
DX: R42 Dizziness and giddiness (principal); I69.354 Hemiplegia and hemiparesis following cerebral infarction affecting left non-dominant side; E86.0 Dehydration; I11.9 Hypertensive heart disease without heart failure; I69.398 Other sequelae of cerebral infarction; R53.1 Weakness; R26.81 Unsteadiness on feet; E11.65 Type 2 diabetes mellitus with hyperglycemia; E11.51 Type 2 diabetes mellitus with diabetic peripheral angiopathy without gangrene; E03.9 Hypothyroidism, unspecified; G93.89 Other specified disorders of brain; R29.6 Repeated falls; I25.10 Atherosclerotic heart disease of native coronary artery without angina pectoris; E78.00 Pure hypercholesterolemia, unspecified; R56.9 Unspecified convulsions; G62.9 Polyneuropathy, unspecified; R00.1 Bradycardia, unspecified; R94.4 Abnormal results of kidney function studies; I51.7 Cardiomegaly; F32.9 Major depressive disorder, single episode, unspecified; F03.90 Unspecified dementia, unspecified severity, without behavioral disturbance, psychotic disturbance, mood disturbance, and anxiety; Z91.81 History of falling; Z85.3 Personal history of malignant neoplasm of breast; Z90.11 Acquired absence of right breast and nipple

== ENCOUNTER 2018-03-13 17:33 | Inpatient (IN) | payer MEDICARE, MEDICAID ==
[2018-03-13 17:33] VITALS: BMI 30.6
--- NOTE | 2018-03-13 19:13 | C.PDOC ---
History Of Present Illness 72 year old female with PMHx of CVA presents to the ED for evaluation. Patient went to see her PMD Dr. Singh today and was sent in to the ED for evaluation. Patient is c/o left sided body pain. Patient states her pain does not let her sleep. Patient denies fever, chills, headache, visual changes, nausea, vomit, diarrhea, injury, fall, trauma. Time Seen by Provider: 03/13/18 19:12 Chief Complaint (Nursing): Shortness Of Breath History Per: Patient History/Exam Limitations: no limitations Onset/Duration Of Symptoms: Days Current Symptoms Are (Timing): Still Present Quality: "Pain" Reports Recently: Treated By A Physician (Dr. Singh) Recent travel outside of the [place]: No Additional History Per: Patient Past Medical History Reviewed: Historical Data, Nursing Documentation, Vital Signs Vital Signs: Last Vital Signs Temp 98.5 F 03/13/18 18:02 Pulse 60 03/13/18 18:02 Resp 16 03/13/18 18:02 BP 192/83 H 03/13/18 18:02 Pulse Ox 98 03/13/18 18:02 - Medical History PMH: CVA, Gastritis, HTN, Hypercholesterolemia, Pneumonia (3 YRS AGO) Denies: HIV, Chronic Kidney Disease Surgical History: Endoscopy - [facility] Procedures BATH/SHOWER TECHNQ TREATMENT USING ASSIST EQUIPMENT (07/09/17) BED MOBILITY TREATMENT USING ASSIST EQUIPMENT (07/09/17) COMMUNICATIVE/COGNITIVE INTEGRATION SKILLS TREATMENT (07/09/17) DRESSING TECHNIQUES TREATMENT USING ASSIST EQUIPMENT (07/09/17) GAIT TRAINING/FUNCTIONAL AMBULATION TREATMENT (07/09/17) TRANSFER TRAINING TREATMENT USING ASSIST EQUIPMENT (07/09/17) Family History: States: Unknown Family Hx - Social History Hx Alcohol Use: No Hx Substance Use: No - Immunization History Hx Tetanus Toxoid Vaccination: No Hx Influenza Vaccination: No Hx Pneumococcal Vaccination: No Review Of Systems Constitutional: Negative for: Fever, Chills Eyes: Negative for: Vision Change Cardiovascular: Negative for: Chest Pain Respiratory: Negative for: Cough, Shortness of Breath Gastrointestinal: Negative for: Nausea, Vomiting, Abdominal Pain Musculoskeletal: Positive for: Shoulder Pain, Arm Pain, Leg Pain Neurological: Positive for: Weakness. Negative for: Numbness, Headache, Dizziness Physical Exam - Physical Exam Appears: Non-toxic, No Acute Distress Skin: Warm, Dry Head: Normacephalic Eye(s): bilateral: Normal Inspection Neck: Supple Chest: Symmetrical Cardiovascular: Rhythm Regular Respiratory: No Rales, No Rhonchi, No Wheezing Gastrointestinal/Abdominal: Soft, No Tenderness, No Guarding, No Rebound Back: Normal Inspection Extremity: Left: Normal ROM, Right: Other (decreased strenght left side), Bilateral: Atraumatic, Normal Color And Temperature Neurological/Psych: Oriented x3, Normal Speech, Normal Cognition Gait: Steady ED Course And Treatment - Laboratory Results Result Diagrams: 03/13/18 19:57 03/13/18 20:41 ECG: Interpreted By Me, Viewed By Me ECG Rhythm: Sinus Rhythm (51), Nonspecific Changes O2 Sat by Pulse Oximetry: 98 (ON RA) Pulse Ox Interpretation: Normal - Radiology CXR: Interpreted by Me, Viewed By Me - CT Scan/US CT head Other Rad Studies (CT/US): Read By Radiologist, Radiology Report Reviewed CT/US Interpretation: EXAM: CT Head without Intravenous Contrast. CLINICAL HISTORY: Trauma. TECHNIQUE: Axial computed tomography images of the head/brain without intravenous contrast. 0.00 mGy-cm. COMPARISON: None provided. FINDINGS: BRAIN. Chronic periventricular and subcortical microvascular disease is seen. Right frontoparietal encephalomalacia is noted, compatible with an old infarct. VENTRICLES: There is generalized parenchymal atrophy noted as demonstrated by symmetrical dilatation of ventricles and sulci. ORBITS: The orbits are unremarkable. SINUSES AND MASTOIDS: The paranasal sinuses and mastoid air cells are clear. BONES: No fracture. SOFT TISSUES: Unremarkable. MISCELLANEOUS: Falcine calcifications. No acute intracranial pathology. IMPRESSION: 1. There is generalized parenchymal atrophy noted as demonstrated by symmetrical dilatation of ventricles and sulci. 2. Chronic periventricular and subcortical microvascular disease is seen. 3. Right frontoparietal encephalomalacia is noted, compatible with an old infarct. 4. Falcine calcifications. 5. No acute intracranial pathology. . Electronically signed on Mar 13, 2018 9:40:21 PM EST by: Kavin Mccray M.D., LUCY Certified By ABR & CBCCT. Fellowship Trained MRI and CT Specialist. CT Cspine Other Rad Studies (CT/US): Read By Radiologist, Radiology Report Reviewed CT/US Interpretation: CLINICAL HISTORY: Trauma (Hx). TECHNIQUE: Multiple axial images were obtained through the cervical spine. Images were also reconstructed in coronal and sagittal planes. The study was performed without IV contrast. COMMENTS: There is no fracture or spondylolisthesis visualized. The paraspinal soft tissues are unremarkable. There are no lytic or blastic lesions. Straightening of cervical lordosis is seen, suggesting muscular spasm. There is evidence of multilevel disk disease, demonstrated by osteophytosis and endplate sclerosis. IMPRESSION: 1. No fracture or spondylolisthesis. 2. Straightening of cervical lordosis is seen, suggesting muscular spasm. 3. Multilevel spondylosis. Thank you for your kind referral of this patient. We appreciate the opportunity to participate in this patient's care. . Electronically signed on Mar 13, 2018 9:41:55 PM EST by: Kavin Mccray M.D., MBA Certified By ABR & CBCCT. Fellowship Trained MRI and CT Specialist. Progress Note: Plan: - VBG. - CT head. - CT C spine. - Labs. - CXR. - Blood culture. - UA Disposition Discussed With DrByron: Eduard Singh Comment: accepted the pt on his service and took over the care at 9:55 PM Counseled Patient/Family Regarding: Studies Performed, Diagnosis - Disposition Disposition: HOSPITALIZED Disposition Time: 19:13 Condition: FAIR Forms: [facility] (Italian) - POA Present On Arrival: Poor Glycemic Control - Clinical Impression Clinical Impression: Unsteady gait, Neck pain, Myalgia - Scribe Statement The provider has reviewed the documentation as recorded by the Scribe Amadou Tierney All medical record entries made by the Scribe were at my direction and personal ly dictated by me. I have reviewed the chart and agree that the record accurately reflects my personal performance of the history, physical exam, medical decision making, and the department course for this patient. I have also personally directed, reviewed, and agree with the discharge instructions and disposition. Decision To Admit - Pt Status Changed To: Hospital Disposition Of: Inpatient - Admit Certification Admit to Inpatient:: After my assessment, the patient will require hospitalization for at least two midnights. This is because of the severity of symptoms shown, intensity of services needed, and/or the medical risk in this patient being treated as an outpatient. - InPatient: Physician Admission Certification: I certify that this patient requires 2 or more midnights of care for the following reason:: After my assessment, the patient will require hospitalization for at least two midnights. This is because of the severity of symptoms shown, intensity of services needed, and/or the medical risk in this patient being treated as an outpatient. - . Bed Request Type: Regular Admitting Physician: Eduard Singh Patient Diagnosis: Unsteady gait, Neck pain, Myalgia
[2018-03-13 20:03] LABS: BASO # 0.1 K/uL (0.0-0.2); BASO % 1.5 % (0.0-2.0); EOS # 0.1 K/uL (0.0-0.7); EOS % 2.8 % (0.0-4.0); LYMPH # 2.8 K/uL (1.0-4.3); LYMPH % 55.6 % (20.0-40.0); MEAN CELL VOLUME 87.5 fL (81.0-99.0); MEAN CORPUSCULAR HEMOGLOBIN 28.2 pg (27.0-31.0); MEAN CORPUSCULAR HGB CONC 32.2 g/dL (33.0-37.0); MEAN PLATELET VOLUME 9.4 fL (7.2-11.7); MONO # 0.4 K/uL (0.0-0.8); MONO % 7.9 % (0.0-10.0); NEUT # 1.6 K/uL (1.8-7.0); NEUT % 32.2 % (50.0-75.0); RBC 4.27 Mil/uL (3.80-5.20); RED CELL DISTRIBUTION WIDTH 14.3 % (11.5-14.5); WHITE BLOOD COUNT 5.1 K/uL (4.8-10.8)
[2018-03-13 20:07] LABS: VENOUS BLOOD GAS BASE EXCESS 0.5 mmol/L (0.0-2.0); VENOUS BLOOD GAS PCO2 41 mmHg (40-60); VENOUS BLOOD GAS PO2 52 mm/Hg (30-55)
[2018-03-13 20:13] LABS: INR 1.1; PARTIAL THROMBOPLASTIN TIME 26 SECONDS (21-34); PROTHROMBIN TIME 12.4 SECONDS (9.7-12.2)
[2018-03-13 20:28] LABS: B-TYPE NATRIURETIC PEPTIDE 254 pg/mL (0-900); D DIMER < 200 ng/mlDDU (0-243)
[2018-03-13 20:59] LABS: ALB/GLOB RATIO 1.7 (1.0-2.1); ALBUMIN 4.4 g/dL (3.5-5.0); ALT/SGPT 29 U/L (9-52); AST/SGOT 39 U/L (14-36); BLOOD UREA NITROGEN 18 mg/dL (7-17); CALCIUM 10.1 mg/dl (8.6-10.4); GFR NON-AFRICAN AMERICAN > 60
--- NOTE | 2018-03-13 21:20 | RAD ---
Date of service: 03/13/2018 PROCEDURE: CHEST RADIOGRAPH, 1 VIEW HISTORY: SOB COMPARISON: 01/03/2018 FINDINGS: LUNGS: Minor patchy volume loss is suspected at the left lung base and to a lesser degree on the right. No definite effusion is seen. No pneumothorax is noted. Heart is mildly enlarged. PLEURA: No pneumothorax or pleural fluid seen. CARDIOVASCULAR: Mild atherosclerotic change of the aorta is suspected. Heart is mildly enlarged. No CHF. OSSEOUS STRUCTURES: No significant abnormalities. VISUALIZED UPPER ABDOMEN: Normal. OTHER FINDINGS: None. IMPRESSION: Mild volume loss at the lung bases. No appreciable CHF.
[2018-03-13 21:39] LABS: URINE BILIRUBIN NEGATIVE (NEGATIVE); URINE BLOOD NEGATIVE (NEGATIVE); URINE CLARITY Clear (Clear); URINE COLOR Yellow (YELLOW); URINE GLUCOSE (UA) NORMAL (Normal); URINE LEUKOCYTE ESTERASE 2+ Leu/uL (Negative); URINE PROTEIN NEGATIVE (NEGATIVE); URINE UROBILINOGEN NORMAL mg/dL (0.2-1.0)
[2018-03-13] MEDS ORDERED: Albuterol HFA 90 mcg/actuation (8 g) IH PRN ×2 (21:50→23:00)
[2018-03-13] MEDS ORDERED: Glucagon Recombinant 1 mg Inj IM PRN (21:56)
[2018-03-13] MEDS ORDERED: Dextrose 50% SYRINGE Inj (50 ml) IV PRN (21:56)
[2018-03-13] MEDS ORDERED: Piperacillin/Tazobact 3.375 gm 100 ML IVPB STA (21:56)
[2018-03-13] MEDS ORDERED: Home Med 1 UNIT (Atorvastatin [Lipitor] 80 MG) PO SCH (22:00)
[2018-03-13] MEDS: Insulin Detemir 100 units/ml Vial (Levemir) SC SCH ×2 (22:01→23:03)
[2018-03-13] MEDS: Divalproex 500 mg ER Tab PO SCH ×2 (22:01→23:03)
[2018-03-13] MEDS ORDERED: Piperacillin/Tazobact 3.375 gm 100 ML IVPB ONE (22:13)
[2018-03-13] MEDS ORDERED: Divalproex 500 mg DR Tab PO ONE (22:51)
[2018-03-13] MEDS ORDERED: Insulin Detemir 100 units/ml Vial (Levemir) SC ONE (22:52)
[2018-03-14] MEDS: Pantoprazole 40 mg EC Tab PO SCH (05:39)
--- NOTE | 2018-03-14 07:02 | CP.PCM.CON ---
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 POST ICTAL R/O NEW CENTRAL PROCESS INC LYRICA D/C TOPAMAX MRI BRAIN / NECK / EEG Past Patient History - Infectious Disease Hx of Infectious Diseases: None - Past Medical History & Family History Past Medical History?: Yes - Past Social History Smoking Status: Never Smoked - CARDIAC Hx Hypercholesterolemia: Yes Hx Hypertension: Yes - PULMONARY Hx Pneumonia: Yes (3 YRS AGO) - NEUROLOGICAL Hx Neurological Disorder: Yes (PERIPHERAL NEUROPATHY) Hx Dizziness: Yes Other/Comment: UNSURE OF DIAGNOSIS/TREMORS - HEENT Hx HEENT Problems: No - RENAL Hx Chronic Kidney Disease: No - ENDOCRINE/METABOLIC Hx Diabetes Mellitus Type 1: Yes - HEMATOLOGICAL/ONCOLOGICAL Hx Human Immunodeficiency Virus (HIV): No - INTEGUMENTARY Hx Dermatological Problems: No - MUSCULOSKELETAL/RHEUMATOLOGICAL Hx Musculoskeletal Disorders: Yes Hx Falls: Yes - GASTROINTESTINAL Hx Gastritis: Yes - GENITOURINARY/GYNECOLOGICAL Hx Genitourinary Disorders: Yes Hx Reproductive Disorders: Yes (FIBROID) - PSYCHIATRIC Hx Substance Use: No - SURGICAL HISTORY Hx Surgeries: Yes Hx Angiogram: Yes Hx Breast Biopsy: Yes Hx Hysterectomy: Yes Hx Mastectomy: Yes (RT. BREAST CANCER) - ANESTHESIA Hx Anesthesia: Yes Hx Anesthesia Reactions: No Meds Allergies/Adverse Reactions: Allergies Allergy/AdvReac Type Severity Reaction Status Date / Time No Known Allergies Allergy Verified 03/13/18 18:06 - Medications Medications: Current Medications Albuterol (Ventolin Hfa 90 Mcg/Actuation (8 G)) 1 puff IH RQ4 PRN PRN Reason: Wheezing Amlodipine Besylate (Norvasc) 5 mg PO DAILY [facility] Aspirin (Aspirin Chewable) 81 mg PO DAILY [facility] Clonidine HCl (Catapres) 0.2 mg PO DAILY [facility] Clopidogrel Bisulfate (Plavix) 75 mg PO DAILY [facility] Dextrose (Dextrose 50% Inj) 0 ml IV STAT PRN; Protocol PRN Reason: Hypoglycemia Protocol Dextrose (Glutose 15) 0 gm PO ONCE PRN; Protocol PRN Reason: Hypoglycemia Protocol Divalproex Sodium (Depakote Er) 500 mg PO Q12 [facility] Last Admin: 03/13/18 23:03 Dose: 500 mg Donepezil HCl (Aricept) 5 mg PO HS [facility] Last Admin: 03/13/18 23:03 Dose: 5 mg Fluticasone Propionate (Flonase) 1 spr NS DAILY [facility] Furosemide (Lasix) 20 mg PO DAILY [facility] Glucagon (Glucagen Diagnostic Kit) 0 mg IM STAT PRN; Protocol PRN Reason: Hypoglycemia Protocol Home Med (Sitagliptin Phos/Metformin Hcl [Janumet 50-1,000 Mg Tablet]) 1 each PO BID [facility] Hydralazine HCl (Apresoline) 50 mg PO Q8 [facility] Last Admin: 03/14/18 05:24 Dose: 50 mg Dextrose (Dextrose 5% In Water 1000 Ml) 1,000 mls @ 0 mls/hr IV .Q0M PRN; Protocol PRN Reason: Hypoglycemia Protocol Insulin Detemir (Levemir) 10 unit SC HS [facility] Last Admin: 03/13/18 23:03 Dose: 10 units Levothyroxine Sodium (Synthroid) 88 mcg PO DAILY@0630 [facility] Losartan Potassium (Cozaar) 100 mg PO DAILY [facility] Multivitamins (Hexavitamin) 1 tab PO DAILY [facility] Pantoprazole Sodium (Protonix Ec Tab) 40 mg PO 0630 [facility] Last Admin: 03/14/18 05:39 Dose: 40 mg Pregabalin (Lyrica) 100 mg PO BID [facility] Rosuvastatin Calcium (Crestor) 40 mg PO HS [facility] Results - Vital Signs Recent Vital Signs: Last Vital Signs Temp 97.9 F 03/13/18 23:45 Pulse 58 L 03/13/18 23:45 Resp 18 03/13/18 23:45 BP 153/87 H 03/14/18 04:00 Pulse Ox 100 03/13/18 23:45 - Labs Result Diagrams: 03/13/18 19:57 03/13/18 20:41 Labs: Laboratory Results - last 24 hr 03/13/18 03/13/18 03/13/18 19:57 19:57 19:57 WBC 5.1 RBC 4.27 Hgb 12.0 Hct 37.4 MCV 87.5 MCH 28.2 MCHC 32.2 L RDW 14.3 Plt Count 252 MPV 9.4 Neut % (Auto) 32.2 L Lymph % (Auto) 55.6 H Lee % (Auto) 7.9 Eos % (Auto) 2.8 Baso % (Auto) 1.5 Neut # (Auto) 1.6 L Lymph # (Auto) 2.8 Lee # (Auto) 0.4 Eos # (Auto) 0.1 Baso # (Auto) 0.1 PT 12.4 H INR 1.1 APTT 26 D-Dimer, Quantitative < 200 pO2 VBG pH VBG pCO2 VBG HCO3 VBG Total CO2 VBG O2 Sat (Calc) VBG Base Excess VBG Potassium Sodium Chloride Glucose Lactate Potassium Carbon Dioxide Anion Gap BUN Creatinine Est GFR ( Amer) Est GFR (Non-Af Amer) POC Glucose (mg/dL) Random Glucose Calcium Total Bilirubin AST ALT Alkaline Phosphatase Troponin I < 0.0120 NT-Pro-B Natriuret Pep 254 Total Protein Albumin Globulin Albumin/Globulin Ratio Venous Blood Potassium Urine Color Urine Clarity Urine pH Ur Specific Tucker Urine Protein Urine Glucose (UA) Urine Ketones Urine Blood Urine Nitrate Urine Bilirubin Urine Urobilinogen Ur Leukocyte Esterase Urine WBC (Auto) Urine RBC (Auto) 03/13/18 03/13/18 03/13/18 20:00 20:41 21:06 WBC RBC Hgb Hct MCV MCH MCHC RDW Plt Count MPV Neut % (Auto) Lymph % (Auto) Lee % (Auto) Eos % (Auto) Baso % (Auto) Neut # (Auto) Lymph # (Auto) Lee # (Auto) Eos # (Auto) Baso # (Auto) PT INR APTT D-Dimer, Quantitative pO2 52 VBG pH 7.40 VBG pCO2 41 VBG HCO3 25.0 VBG Total CO2 26.7 VBG O2 Sat (Calc) 90.1 H VBG Base Excess 0.5 VBG Potassium 3.5 L Sodium 144.0 142 Chloride 110.0 H 107 Glucose 114 H Lactate 0.9 Potassium 3.7 Carbon Dioxide 23 Anion Gap 15 BUN 18 H Creatinine 0.7 Est GFR ( Amer) > 60 Est GFR (Non-Af Amer) > 60 POC Glucose (mg/dL) Random Glucose 115 H Calcium 10.1 Total Bilirubin 0.5 AST 39 H D ALT 29 Alkaline Phosphatase 74 Troponin I NT-Pro-B Natriuret Pep Total Protein 7.0 Albumin 4.4 Globulin 2.6 Albumin/Globulin Ratio 1.7 Venous Blood Potassium 3.5 L Urine Color Yellow Urine Clarity Clear Urine pH 5.0 Ur Specific Tucker 1.023 Urine Protein Negative Urine Glucose (UA) Normal Urine Ketones Negative Urine Blood Negative Urine Nitrate Negative Urine Bilirubin Negative Urine Urobilinogen Normal Ur Leukocyte Esterase 2+ H Urine WBC (Auto) 11 H Urine RBC (Auto) 1 03/14/18 06:38 WBC RBC Hgb Hct MCV MCH MCHC RDW Plt Count MPV Neut % (Auto) Lymph % (Auto) Lee % (Auto) Eos % (Auto) Baso % (Auto) Neut # (Auto) Lymph # (Auto) Lee # (Auto) Eos # (Auto) Baso # (Auto) PT INR APTT D-Dimer, Quantitative pO2 VBG pH VBG pCO2 VBG HCO3 VBG Total CO2 VBG O2 Sat (Calc) VBG Base Excess VBG Potassium Sodium Chloride Glucose Lactate Potassium Carbon Dioxide Anion Gap BUN Creatinine Est GFR ( Amer) Est GFR (Non-Af Amer) POC Glucose (mg/dL) 132 H Random Glucose Calcium Total Bilirubin AST ALT Alkaline Phosphatase Troponin I NT-Pro-B Natriuret Pep Total Protein Albumin Globulin Albumin/Globulin Ratio Venous Blood Potassium Urine Color Urine Clarity Urine pH Ur Specific Tucker Urine Protein Urine Glucose (UA) Urine Ketones Urine Blood Urine Nitrate Urine Bilirubin Urine Urobilinogen Ur Leukocyte Esterase Urine WBC (Auto) Urine RBC (Auto)
--- NOTE | 2018-03-14 08:47 | CT ---
Date of service: 03/13/2018 PROCEDURE: CT HEAD WITHOUT CONTRAST. HISTORY: Altered mental status. Evaluate for hemorrhage. COMPARISON: None available. TECHNIQUE: Axial computed tomography images were obtained through the head/brain without intravenous contrast. Radiation dose: Total exam DLP = 1013.46 mGy-cm. This CT exam was performed using one or more of the following dose reduction techniques: Automated exposure control, adjustment of the mA and/or kV according to patient size, and/or use of iterative reconstruction technique. FINDINGS: HEMORRHAGE: No intracranial hemorrhage. BRAIN: No mass effect or edema. Scattered focal lucencies in the subcortical and periventricular white matter suggestive for chronic microvascular ischemic change. Persistent encephalomalacia in the right frontal, parietal, and posterior temporal regions consistent with chronic areas of infarction. Falcine calcifications. Choroid plexus calcifications. Mild cerebellar atrophy. Basal ganglia calcifications. Left caudate head lacunar infarct. VENTRICLES: Diffuse prominence of the ventricles and sulci consistent with atrophy. CALVARIUM: Unremarkable. PARANASAL SINUSES: Unremarkable as visualized. No significant inflammatory changes. MASTOID AIR CELLS: Unremarkable as visualized. No inflammatory changes. OTHER FINDINGS: None. IMPRESSION: 1. Persistent prominent encephalomalacia seen within the right frontal, parietal, and posterior temporal regions consistent with chronic areas of infarction. If there is concern for acute ischemic change, consider correlation with MRI. 2. Atrophy. 3. Chronic microvascular ischemic change. 4. Left caudate head lacunar infarct. A preliminary report was generated at 9:40 p.m. on 03/13/[address] Kavin Mccray from [employer].
--- NOTE | 2018-03-14 09:33 | CT ---
Date of service: 03/13/2018 PROCEDURE: CT Cervical Spine without contrast HISTORY: Neck pain COMPARISON: None available. TECHNIQUE: Axial computed tomography images were obtained of the cervical spine without the use of intravenous contrast. Coronal and sagittal reformatted images were created and reviewed. Radiation dose: Total exam DLP = 408.69 mGy-cm. This CT exam was performed using one or more of the following dose reduction techniques: Automated exposure control, adjustment of the mA and/or kV according to patient size, and/or use of iterative reconstruction technique. FINDINGS: VERTEBRAE: No evidence of acute compression fractures nor retropulsed fragments. Vertebral bodies exhibit normal stature. There is straightening of the normal cervical lordosis which could be secondary to patient positioning in the gantry however underlying element of muscle spasm may contribute. Vertebral bodies otherwise exhibit normal alignment. Facets normally aligned. Note made of multiple small round/elliptical shaped scattered lucencies throughout the cervical spine-nonspecific and of uncertain etiology. Clinical correlation recommended. Follow-up MRI of the cervical spine may be prudent for further evaluation of the small lucencies. DISCS/SPINAL CANAL/NEURAL FORAMINA: Mild multilevel degenerative spondylosis of the cervical spine. The At the C4-C5 level, the mild disc space narrowing with small irregular asymmetric disc ridge complex larger on the right than left and contiguous with slightly hypertrophic uncovertebral joints. The the changes result in mild compressive effects on the central and right parasagittal aspect of the thecal sac and possibly spinal cord. Central canal is marginal to slightly narrowed at this level. Exit foramina appear adequate. The remaining levels exhibit relatively adequate disc height. No disc herniations nor significant disc bulges seen at the remaining levels. Central canal exit foramina appear adequate. PARASPINAL SOFT TISSUES: Unremarkable. OTHER FINDINGS: Mild calcified atherosclerotic plaque changes both carotid bifurcations. Minimal biapical pleural thickening however lung apices are otherwise clear.. Suspect partial opacification left mastoid air complex. Note that the thyroid gland slightly heterogeneous possibly due to crossing streak and beam hardening artifact arising from dense clavicles and shoulder girdles. Follow-up thyroid ultrasound could be performed if clinically indicated. IMPRESSION: No acute fractures. Slight straightening of the normal cervical lordosis possibly due to patient positioning in the gantry however underlying element of muscle spasm not excluded. Mild degenerative spondylosis C5-C6 level as described. The thyroid gland slightly heterogeneous possibly due to crossing streak and beam hardening artifact arising from dense clavicles and shoulder girdles. Follow-up thyroid ultrasound could be performed if clinically indicated. See above discussion for additional details and findings.
[2018-03-14] MEDS: Divalproex 500 mg ER Tab PO SCH (10:33)
[2018-03-14] MEDS: Multiple Vitamins Tab PO SCH (10:36)
[2018-03-14] MEDS: Fluticasone Nasal 50 mcg/Spray NS SCH (13:00)
--- NOTE | 2018-03-14 13:15 | MRI ---
Date of service: 03/14/2018 PROCEDURE: MRI BRAIN WITHOUT CONTRAST HISTORY: NEW STROKE - OLD RT MCA STROKE COMPARISON: Comparison made with prior CT scan and MRI brain dated 03/13/2018 and 01/06/2018 respectively. TECHNIQUE: Multiplanar, multisequence MR images of the brain were obtained without intravenous contrast enhancement. FINDINGS: HEMORRHAGE: No acute parenchymal, subarachnoid nor extra-axial hemorrhage. No evidence of hemosiderin deposition is identified on gradient echo weighted sequence. DWI: No evidence of an acute or early subacute infarction seen on diffusion imaging. BRAIN PARENCHYMA: Re demonstrated is a large area of partially cystic encephalomalacia involving the right posterior temporoparietal watershed zone consistent with chronic infarct.. Changes extend superiorly to involve the right aranda radiata with apparent involvement of the right lateral and posterior basal ganglia as well. There is associated mild ex vacuo dilatation of the right atrium with, right temporal and right occipital horns.. Also noted are mild diffuse/confluent chronic periventricular white matter ischemic changes that extend peripherally into the deep and to a lesser degree subcortical white matter both cerebral hemispheres. VENTRICLES: No obstructive the hydrocephalus. CRANIUM: Unremarkable. ORBITS: Orbits and contents unremarkable.. PARANASAL SINUSES/MASTOIDS: Clear VASCULAR SYSTEM: Visualized major vascular flow voids at skull base patent.. OTHER FINDINGS: None. IMPRESSION: No evidence of acute intracranial hemorrhage or infarct. Re demonstrated is a large chronic infarct right posterior temporoparietal watershed zone extending into the right basal ganglia and and superiorly into the right aranda radiata. Associated ex vacuo dilatation of the right atrium, right temporal and occipital horns. Mild chronic white matter ischemic changes.
--- NOTE | 2018-03-14 13:40 | MRI ---
Date of service: 03/14/2018 PROCEDURE: MR CERVICAL SPINE WITHOUT CONTRAST HISTORY: HNP COMPARISON: None available. TECHNIQUE: Multiecho multiplanar sequences were performed through the cervical spine without the use of intravenous contrast. FINDINGS: No acute compression fractures no retropulsed fragments.. Aside from some minor multilevel fish-mouth endplate deformities, the vertebral bodies otherwise exhibit normal alignment. Facets normally aligned. Mild multilevel degenerative spondylosis present. C2-C3: There is mild age related disc desiccation with mild anterior disc space narrowing. There is a small central and bilateral disc bulge that indents the ventral surface of the thecal sac the not cause cord compression. Central canal appears slightly narrowed. Exit foramina are patent. C3-C4: Mild age related disc desiccation. Disc space height maintained. Small irregular disc protrusion ridge complex results in mild irregular compressive effects on the ventral surface of the thecal sac and spinal cord. Central canal is mildly narrowed. Exit foramina appear adequate despite slightly over grown uncovertebral facets.. C4-C5: Age related disc desiccation however with minor disc space narrowing more so along the posterior disc margin. There also small central and bilateral (right larger than right) disc herniation the ridge complex that also compresses the. Disc ridge complex results in moderate right-sided central canal stenosis and moderate cord compression more so on the right side. Exit foramina appear adequate despite slightly over grown uncovertebral and facets. C5-C6: Mild age related disc desiccation. No disc herniation however there is small broad-based central and bilateral disc bulge that flattens the ventral surface of the thecal sac and mildly flattens the ventral surface of the cord. The uncovertebral facets also hypertrophic. Exit foramina appear adequate. C6-C7: There is mild age related disc desiccation. Disc space height relatively maintained. Minimal broad-based bulge results in mild central canal narrowing and flattening of the ventral surface of the cord. The exit foramina appear adequate however note made of a right-sided nerve sleeve cyst. C7-T1: No disc herniation, spinal canal stenosis or neural foraminal narrowing.. There is a small right-sided nerve sleeve cyst at the C7-T1 level. OTHER FINDINGS: None. IMPRESSION: No acute fractures.. The mild moderate multilevel degenerative spondylosis with varying degrees of mild canal narrowing and mild to moderate cord compression as detailed above.
[2018-03-14 15:32] LABS: FREE T4 0.9 ng/dL (0.78-2.19)
[2018-03-14 16:06] LABS: PROLACTIN 11.3 ng/mL (3.0-18.9)
--- NOTE | 2018-03-14 20:14 | CARD ---
APPROVED REPORT Date of service: 03/13/2018 EKG Measurement Heart [id number] TX 158P [id number] <Conclusion> Reversed Arms leads needs repeat Sinus bradycardia Right superior axis deviation Abnormal ECG
[2018-03-14] MEDS: Divalproex 500 mg DR Tab PO SCH (21:44)
[2018-03-14] MEDS: Insulin Detemir 100 units/ml Vial (Levemir) SC SCH (21:47)
--- NOTE | 2018-03-15 04:38 | CON ---
DATE: 03/14/2018 REASON FOR CONSULTATION: Recent fall. HISTORY OF PRESENT ILLNESS: The history was obtained from the patient's niece, who was at the bedside and translated to me. The patient speaks latvian and creole. 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 The initial plan was to have the [facility] transfer the patient to another [facility] in [place] in [facility], as a retiree, but that did not materialize. Apparently, the patient sustained a fall in her relative house in [place]. She fell on her left knee and left shoulder and sustained pain in the left side of the body. No head injury. The patient denies feeling dizzy or fainting at the time of fall most likely the fall was related to her left-sided weakness and unsteady gait. The patient denies any retrosternal chest pain and is not aware of any prior history of heart attack. SOCIAL HISTORY: Nonsmoker. Nondrinker. 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 PAST MEDICAL HISTORY: History of breast CA, status post right mastectomy; history of CVA with residual left hemiparesis; history of recurrent falls; history of hypothyroidism; history of diabetes mellitus; and hypertension. REVIEW OF SYSTEMS: No nausea or vomiting. No retrosternal chest pain. No palpitation. No dizziness. PHYSICAL EXAMINATION: GENERAL: The patient is an elderly female who does not appear to be in acute distress. VITAL SIGNS: Blood pressure 146/64, heart rate 56, temperature 97.8, and respirations 20. HEENT: Normocephalic. CHEST: Clear. HEART: S1 and S2, regular. ABDOMEN: Soft. EXTREMITIES: ____ noted over the left knee. No pedal edema. LABORATORY DATA: SMA-7: Sodium 142, potassium 3.7, chloride 107, CO2 of 23, glucose 115, BUN 18, creatinine 0.7. TSH level is within normal limits at 2.1. INR is 1.1. D-Dimer is less than 200. CBC: Hemoglobin and hematocrit, white count and platelet count are within normal limits. Cervical spine MRI, no acute fracture. Mild to moderate multilevel degenerative spondylosis with varying degree of mild canal narrowing and mild to moderate cord compression. Brain MRI, no evidence of acute intracranial hemorrhage or infarct. Large chronic infarct right posterior inferoparietal watershed zone extending to the right basal ganglia and superiorly into the right aranda radiata. Chest x-ray, mild volume loss of the lung bases. Cervical spine CT scan, no acute fracture. Previously light straining of the normal cervical lordosis possibly due to the patient's positioning. Mild degenerative spondylosis C5-C6 level. The thyroid gland is slightly heterogenous. Echocardiographic study performed this past December revealed mild concentric LVH with normal systolic function and grade 1 abnormal relaxation pattern. Yesterday's admitting EKG revealed sinus bradycardia, LVH of 51, right axis deviation. Of note, the EKG has reversed ____. ASSESSMENT: 1. Recurrent falls. 2. Mild sinus bradycardia. 3. History of cerebrovascular accident involving a large area of the right posterior temporal parietal watershed zone extending to the right basal ganglia and the right aranda radiata with residual left hemiparesis. 4. Hypertension. 5. Diabetes mellitus. 6. Hypothyroidism. 7. History of peripheral vascular disease, status post peripheral angioplasty in 10/2015. RECOMMENDATIONS: Continue current conservative medical approach including the following medications: Hydralazine 50 mg every 8 hours, Aricept 5 mg once a day, aspirin 81 mg once a day, discontinue clonidine. Continue Cozaar 100 mg once a day, Crestor 40 mg once a day, Depakote 500 mg twice a day, and Glucophage 1 g twice a day, Lasix 20 mg p.o. once a day, Norvasc 5 mg once a day, Plavix 75 mg once a day, Synthroid 88 mcg once a day. Patrick Liao MD
[2018-03-15] MEDS: Pantoprazole 40 mg EC Tab PO SCH (05:33)
[2018-03-15] MEDS: Levothyroxine 88 MCG TAB PO SCH (05:33)
--- NOTE | 2018-03-15 06:56 | CON ---
DATE: 03/14/2018 DATE OF ADMISSION: 03/13/2018 ATTENDING PHYSICIAN: Dr. Singh. REASON FOR CONSULTATION: Left-sided pain. CHIEF COMPLAINT The patient was advised to come to [facility] with a history of progressive unbearable pain on her left arm and left leg. From neurological point of view, I was called in to evaluate her for further management. HISTORY OF PRESENT ILLNESS: The patient is a 72-year-old moderately built, right-handed female presenting with 3 month history of left shoulder down to her left foot pain. The pain is constant, burning and pricking sensation without any break. She could not able to bear it lately. She denies any facial; however, some discomfort on her left side of the face compared to her arm and legs. No involuntary movement. No loss of consciousness. No dizziness. No double vision. Denies chest pain. discomfort. PAST MEDICAL HISTORY Egx-tljzhgp-wdrqryuro diabetes mellitus, hypertension, dyslipidemia, post stroke/left hemiparesis. PERSONAL HISTORY Denies smoking or alcohol use. ALLERGIES: NO KNOWN ALLERGIES. REVIEW OF SYSTEMS 12-point system being reviewed. From neuro, progressive left-sided pain. MEDICATIONS: Apresoline, Aricept, aspirin, Catapres, Cozaar, Crestor, Depakote, DEXA IV fluids, Lasix, vitamins, Lyrica, Topamax, clopidogrel, Synthroid. PHYSICAL EXAMINATION: VITAL SIGNS: Blood pressure 153/87, mean artery pressure of 109, respiratory rate 18, temperature afebrile. NECK: Supple. No carotid bruits. HEART: Sounds regular. CHEST: Fair air entry. EXTREMITIES: Left leg externally rotated. NEUROLOGIC EXAMINATION: Mental status examination, easily arousable. She knows she is in the hospital. She could able to tell her complaints. No sign of depression. Speech is dysarthric from her old stroke which is not new. Cranial nerve examination, visual field intact. Pupils reactive to light. Extraocular movement normal. No nystagmus. No facial sensory deficit. Significant facial asymmetry manifesting with flattening of the left nasolabial fold. Hearing is normal. Tongue is midline. Good gag. Motor examination, slightly increased tone in her left side to compare with the right side. Deep tendon reflexes is decreased both sides. Plantars are upgoing on her left side. Sensory examination, decreased pain and temperature on her left to compare with the right side. Coordination: Finger-nose test is intact on her right side. Gait is deferred at this time. 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 Because of the nature of the pain and persistency consistent with his possible diagnosis. However, other possible causes including post ictal syndrome should be ruled out. However, other possible causes including new stroke process on cervical pathology should be ruled out. From my evaluation, I doubt cervical pathology. Workup: CT of the head showed encephalomalacia on her right MCA territory with atrophy and periventricular ischemic changes. Blood workup, WBC 5.1, hemoglobin 12, hematocrit 37.4, platelet 252. PT 12.4, INR 1.1, PTT 26. She has had blood gas at room air. PH is 7.4 pO2 52, pCO2 41, bicarbonate of 25 with saturation of 90.1%. Sodium 142, potassium 3.7, chloride 107, bicarbonate 73, BUN 18, creatinine 0.7, GFR more than 60, glucose 132, calcium 10.1, AST 39, somewhat elevated. Urine shows 2+ leukocyte esterase and WBCs. EKG normal sinus rhythm. RECOMMENDATIONS: 1. An MRI of the brain to rule out any new stroke process. 2. MRI of the cervical spine to rule out any cervical pathology including herniated nucleus pulposus. 3. EEG to rule out any seizure activities or any subclinical seizures. 4. Blood workup as per the order. 5. Polypharmacy should be tapered off. Increase Lyrica dose to 100 twice a day, the dose can be increased slowly as she tolerates without any side effects. The Topamax can be discontinued. When pain control is stable with Lyrica and Depakote should come off from her system because of multiple drug interaction with the Depakote. The patient should have physical therapy during the hospitalization. The patient will be followed closely with you. Drew Nicole MD MTDWilliam
--- NOTE | 2018-03-15 08:47 | HP ---
HISTORY OF PRESENT ILLNESS: The patient is a 72-year-old female with history of hypertension, diabetes and also history of CVA recently and weakness of the left side of the body and status post right mastectomy. The patient came to my office complaining of severe pain to the left leg and the left arm. Also the patient claims to feel dizzy with tendency to fall. So, the patient was evaluated in the emergency room, she was admitted. ALLERGIES: THE PATIENT HAS NO KNOWN ALLERGY. PAST MEDICAL HISTORY: As I mentioned history of CVA, hypertension, diabetes, dementia, and arthritis. 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 No history of smoking or alcohol abuse. FAMILY HISTORY: No inherited disease. REVIEW OF SYSTEMS: PULMONARY: The patient was complaining of shortness of breath with minor effort. CARDIOVASCULAR: The patient admits to having some palpitation at times. GASTROINTESTINAL: Epigastric pain. GENITOURINARY: No dysuria. NEURO: The patient is complaining of pain to the left side of the body, mainly to the left lower extremity with some heaviness of the left lower extremity after walking. PHYSICAL EXAMINATION: GENERAL: The patient is alert and awake and oriented. VITAL SIGNS: Earlier blood pressure was very high at 177/74, but now at 1500 hours blood pressure went down to 146/74; pulse is 56; respirations 20; temperature 97.8. HEENT: Head is normocephalic. NECK: Supple. No JVD. CHEST: Right mastectomy. LUNGS: Clear. HEART: Regular rate and rhythm. No murmur noted. ABDOMEN: Soft. There is some tenderness in the epigastric area. EXTREMITIES: There is some swelling to the left lower extremity and tenderness to the left arm and left leg and to the thigh. NEUROLOGIC: There is a marked difficulty walking. LABORATORY DATA: The patient had some blood work done. WBC 5.1, hemoglobin 12, hematocrit 37.5, and platelet is 252. Sodium 142, potassium 3.7, chloride 107, bicarb 23, BUN 18, creatinine 0.7, GFR 132, calcium 30. Total bilirubin 0.5, AST 39, ALT 29, alkaline phosphate 74. ASSESSMENT AND PLAN: The patient is admitted as I mentioned with a diagnosis of severe left-sided pain, dizziness, hypertension, diabetes, dementia, debility, and gait dysfunction. The patient will have a consult with Dr. Nicole, Neurologist. EEG and MRI was ordered today. Eduard Singh MD
[2018-03-15 09:05] LABS: BASO % 0.9 % (0.0-2.0); EOS # 0.2 K/uL (0.0-0.7); HEMOGLOBIN 12.5 g/dL (11.0-16.0); LYMPH # 1.7 K/uL (1.0-4.3); LYMPH % 47.3 % (20.0-40.0); MEAN CELL VOLUME 88.1 fL (81.0-99.0); MEAN CORPUSCULAR HEMOGLOBIN 28.3 pg (27.0-31.0); MEAN CORPUSCULAR HGB CONC 32.1 g/dL (33.0-37.0); MEAN PLATELET VOLUME 9.3 fL (7.2-11.7); MONO # 0.2 K/uL (0.0-0.8); MONO % 6.7 % (0.0-10.0); NEUT # 1.4 K/uL (1.8-7.0); NEUT % 40.1 % (50.0-75.0); NRBC % 0.1 % (0.0-2.0); RBC 4.42 Mil/uL (3.80-5.20); RED CELL DISTRIBUTION WIDTH 14.6 % (11.5-14.5); WHITE BLOOD COUNT 3.5 K/uL (4.8-10.8)
[2018-03-15 09:27] LABS: ALB/GLOB RATIO 1.5 (1.0-2.1); ALBUMIN 3.8 g/dL (3.5-5.0); ALT/SGPT 24 U/L (9-52); AST/SGOT 21 U/L (14-36); BLOOD UREA NITROGEN 16 mg/dL (7-17); CALCIUM 9.6 mg/dl (8.6-10.4); GFR NON-AFRICAN AMERICAN > 60; HDL CHOLESTEROL 48 mg/dL (30-70)
[2018-03-15 09:33] LABS: LDL CHOLESTEROL 121 mg/dL (0-129)
[2018-03-15] MEDS: Divalproex 500 mg DR Tab PO SCH ×2 (10:28→21:28)
[2018-03-15] MEDS: Multiple Vitamins Tab PO SCH (10:31)
[2018-03-15] MEDS: Enoxaparin 40 mg Syringe SC SCH (10:33)
[2018-03-15] MEDS: Fluticasone Nasal 50 mcg/Spray NS SCH (10:35)
--- NOTE | 2018-03-15 10:52 | PN ---
DATE: 03/15/2018 TIME OF EVALUATION: 07:05 a.m. NEUROLOGICAL PROBLEM: Poststroke central pain syndrome. PHYSICAL EXAMINATION: VITAL SIGNS: Blood pressure 147/84, mean arterial pressure 105, respiratory rate 18, temperature 98.2, pulse rate 60 and regular. EXTREMITIES: The patient still complaining of left foot pain with pins and needles. Rest of the examination is unchanged. She is ambulatory with minimal assistance. LABORATORY DATA: Her workup MRI of the brain reviewed post stroke encephalomalacia over right temporoparietal region and periventricular ischemic changes. Her Lyrica dose can be increased to three times a day and Tylenol can be substituted as a p.r.n. basis for her pain control. The patient is also scheduled to have a cervical MRI, which is pending at present. The patient will be followed closely with you. Drew Nicole MD
[2018-03-15] MEDS ORDERED: Influenza Vaccine 60 MCG/0.5 ML SYR (3 yr & up) IM ONE (12:00)
[2018-03-15] MEDS ORDERED: Pneumococcal 23-Valent Vaccine IM ONE (12:00)
[2018-03-15 16:21] VITALS: RESP 20
--- NOTE | 2018-03-15 16:39 | RAD ---
Date of service: 03/15/2018 PROCEDURE: Radiographs of the left shoulder joint HISTORY: fall COMPARISON: No prior. FINDINGS: BONES: Bone alignment is normal. There is no acute displaced fracture or bone destruction. There is diffuse bone demineralization. JOINTS: There is mild degenerative osteoarthrosis in the acromioclavicular and glenohumeral joints. SOFT TISSUES: Normal. OTHER FINDINGS: None. IMPRESSION: No acute displaced fracture or dislocation.
--- NOTE | 2018-03-15 16:48 | RAD ---
Date of service: 03/15/2018 PROCEDURE: Left Knee Radiographs. HISTORY: Pain. COMPARISON: None. FINDINGS: BONES: Bone alignment is normal. There is no acute displaced fracture or bone destruction. There is periarticular bone demineralization. JOINTS: There is moderate tricompartmental degenerative osteoarthrosis with reduced joint spaces, marginal osteophytes and tibial spiking, worse in the medial compartment. JOINT EFFUSION: None. OTHER FINDINGS: None. IMPRESSION: No acute displaced fracture or dislocation.
--- NOTE | 2018-03-15 19:46 | PN ---
DATE: 03/15/2018 SUBJECTIVE: The patient is experiencing left shoulder and left knee pain. No chest pain. PHYSICAL EXAMINATION VITAL SIGNS: Blood pressure 146/54, heart rate 58, temperature 98.1, respirations 18. HEENT: Normocephalic. CHEST: Clear. HEART: S1, S2 regular. EXTREMITIES: No edema. LABORATORY DATA: Today's hemoglobin and hematocrit are 12.5 and 39, white count 3.5, platelet count 304,000. Today's SMA-7 is entirely within normal limits. ASSESSMENT: 1. Status post fall. 2. Mild sinus bradycardia. 3. Mild cervical spinal canal narrowing with hbte-aq-[id number] cord compression. 4. Hypertension. 5. Diabetes mellitus. RECOMMENDATIONS: Continue hydralazine 50 mg p.o. every 8 hours, Aricept 5 mg once a day, aspirin 81 mg once a day, Cozaar 100 mg once a day, Crestor 40 mg once a day, Lasix 20 mg once a day, Lovenox 40 mg subcutaneous once a day, Plavix 75 mg once a day, Synthroid 88 mcg once a day. Obtain x-ray of the left shoulder and left knee. Patrick Liao MD
[2018-03-15] MEDS: Insulin Detemir 100 units/ml Vial (Levemir) SC SCH (21:28)
[2018-03-16] MEDS: Levothyroxine 88 MCG TAB PO SCH (05:44)
[2018-03-16] MEDS: Pantoprazole 40 mg EC Tab PO SCH (05:44)
--- NOTE | 2018-03-16 07:07 | PN ---
DATE: 03/15/2018 SUBJECTIVE: Today, the patient is complaining of much less pain to the left side of the body and legs. The patient has no shortness of breath at this time. No chest pain. PHYSICAL EXAMINATION: VITAL SIGNS: The patient has a blood pressure of 135/64, pulse 62, respirations 20, and temperature 98.2. FACE: She has some of the lip, right. LUNGS: Clear. HEART: Regular rate and rhythm. ABDOMEN: Soft. Nontender. EXTREMITIES: Has weakness in the left lower extremity and some tenderness. The pain in the leg was somewhat decreased considerably. LABORATORY DATA: The patient has a WBC of 2.5, hemoglobin 12.5, hematocrit 39 and platelet was 304. Chemistry showed a sodium of 140, potassium 4, chloride 105, bicarb is 26, BUN is 16, creatinine 0.8, and glucose 98. Troponin is 6.4. Coagulation: PT 12.4, INR 1.1. Report showed that the patient had an x-ray of the shoulder done. There is mild degenerative osteoarthrosis in the acromioclavicular joints. X-ray of the knees showed moderate tricompartmental degenerative osteoarthritis with reduced joint spaces. The patient has a cervical MRI that was done also. It showed no acute fracture. There is hmaq-un-wkoyrxzh multilevel degenerative spondylosis of varying degree. The brain MRI showed that no evidence of acute intracranial hemorrhage or infarct. There is a large chronic infarct in right posterior watershed level extending into the right basal ganglia and superiorly into the right aranda radiata associated with right temporal and occipital horns. ASSESSMENT AND PLAN: The plan is that we are going to continue physical therapy. Medications were somewhat changed to was given twice a day again and also clopidogrel, amlodipine and Lyrica. So, we are going to continue his medications. The case was discussed with Amanda Haider, nurse practitioner. Eduard Singh MD
[2018-03-16 07:31] LABS: BASO % 0.9 % (0.0-2.0); EOS # 0.2 K/uL (0.0-0.7); EOS % 4.4 % (0.0-4.0); HEMOGLOBIN 11.8 g/dL (11.0-16.0); LYMPH % 26.2 % (20.0-40.0); MEAN CORPUSCULAR HEMOGLOBIN 28.6 pg (27.0-31.0); MEAN CORPUSCULAR HGB CONC 32.5 g/dL (33.0-37.0); MONO # 0.3 K/uL (0.0-0.8); MONO % 8.3 % (0.0-10.0); NEUT # 2.2 K/uL (1.8-7.0); NEUT % 60.2 % (50.0-75.0); NRBC % 0.1 % (0.0-2.0); RBC 4.13 Mil/uL (3.80-5.20); RED CELL DISTRIBUTION WIDTH 14.5 % (11.5-14.5); WHITE BLOOD COUNT 3.7 K/uL (4.8-10.8)
[2018-03-16 07:51] LABS: ALB/GLOB RATIO 1.5 (1.0-2.1); ALBUMIN 3.8 g/dL (3.5-5.0); ALT/SGPT 24 U/L (9-52); AST/SGOT 21 U/L (14-36); BLOOD UREA NITROGEN 21 mg/dL (7-17); CALCIUM 9.3 mg/dl (8.6-10.4); GFR NON-AFRICAN AMERICAN > 60; HDL CHOLESTEROL 47 mg/dL (30-70)
[2018-03-16 08:15] LABS: LDL CHOLESTEROL 113 mg/dL (0-129)
--- NOTE | 2018-03-16 08:27 | PN ---
DATE: 03/16/2018 TIME OF EVALUATION: 07:10 a.m. NEUROLOGICAL PROBLEM: Central pain syndrome. PHYSICAL EXAMINATION: VITAL SIGNS: Blood pressure 124/68, mean arterial pressure of 86, respiratory rate 18, temperature 98.1, pulse rate 69 and regular. The patient is complaining of pain in his left foot, however, the pain is somewhat better than the day she came in. No obvious seizure has been noted during the hospitalization. Examination is unchanged to compare with my previous exam. The patient is tolerating well with Lyrica 100 mg three times a day. Still the dose can be titrated as she tolerates. Electroencephalogram will be reviewed. However, Depakote dose was at therapeutic level which is 73 at present. The patient's age and polypharmacy, Depakote may not be the right drug for his underlying seizures. However, if he has seizures, I preferred Depakote can be slowly tapered off and some other medication will be started such as carbamazepine. Anyway, I would like to review the electroencephalogram and medication can be switched if it is needed. Drew Niocle MD
[2018-03-16] MEDS: Divalproex 500 mg DR Tab PO SCH (10:15)
[2018-03-16] MEDS: Multiple Vitamins Tab PO SCH (10:17)
[2018-03-16] MEDS: Enoxaparin 40 mg Syringe SC SCH (10:18)
[2018-03-16] MEDS: Fluticasone Nasal 50 mcg/Spray NS SCH (10:26)
[2018-03-16 16:12] VITALS: BP 137/76; PULSE 64; TEMP 98.5; O2SAT 100
--- NOTE | 2018-03-16 20:19 | PN ---
DATE: 03/16/2018 SUBJECTIVE: The patient denies any chest pain. She is experiencing left shoulder and left knee pain. PHYSICAL EXAMINATION: VITAL SIGNS: Blood pressure 145/68, heart rate 77, temperature 97.7, respirations 20. HEENT: Normocephalic. CHEST: Clear. HEART: S1 and S2 regular. EXTREMITIES: No edema. LABORATORY DATA: Hemoglobin and hematocrit 11.8 and 36.3, white count 3.7, platelet count 266,000. SMA-7 is within normal limits except for BUN of 21. Left shoulder x-ray, no acute displaced fracture or dislocation. Left knee x-ray, no acute displaced fracture or dislocation. ASSESSMENT: 1. Status post fall. 2. Mild sinus bradycardia. 3. History of cerebrovascular accident with residual left hemiparesis. 4. Diabetes mellitus. 5. Hypertension. 6. Puvp-ip-jswisujk spinal cord compression with narrow cervical spinal canal. RECOMMENDATIONS: Case was discussed with Dr. Eduard Singh, primary physician. The patient can be maintained on hydralazine 50 mg every 8 hours , Aricept 5 mg once a day, aspirin 81 mg once a day, Cozaar 100 mg once a day, Crestor 40 mg once a day, Lasix 20 mg once a day, Lovenox 40 mg once a ay, Plavix 75 mg once a day, Synthroid 88 mcg once a day. No pacemaker is indicated at this time. Patrick Liao MD
--- NOTE | 2018-03-16 23:23 | PN ---
DATE: 03/16/2018 SUBJECTIVE: Today, the patient is alert and awake, has been having less pain to the left leg. No shortness of breath, no chest pain, no dizziness. PHYSICAL EXAMINATION: VITAL SIGNS: Blood pressure is 137/76, pulse 64, respirations 20, temperature 98.5. NECK: Supple. HEART: Regular rate and rhythm. LUNGS: Clear. ABDOMEN: Soft. EXTREMITIES: There is no edema. NEUROLOGIC: There is some weakness in the left side of the lower extremity. The plan is that the patient may be going through a possible discharge today. This patient will be going home today. The case was discussed and reviewed with Amanda Haider, the nurse practitioner. Eduard Singh MD
--- NOTE | 2018-03-17 10:34 | EEG ---
DATE: 03/14/2018 This is a 16-channel electroencephalogram of awake adult. During the study, photic stimulation was performed. Hyperventilation was not performed. The resting electroencephalogram consists of 20 to 30 microvolt, 9 to 11 Hertz alpha activities seen at the parietal and occipital leads. Anteriorly, fast activity superimposed with 2 to 3 Hertz delta activities seen in frontal and central leads. There are some paroxysmal activities more pronounced in the right temporal occipital leads consistent with epileptiform discharges. Delta activities seen in more than 20 seconds. The photic stimulation did not evoke driving response noted at 2 to 20 Hz. IMPRESSION: This is an abnormal electroencephalogram because of abnormal paroxysmal activities noted in the right temporal occipital leads consistent with epileptiform focus. Please correlate the findings with the neurological and radiological studies. Drew Nicole MD
--- NOTE | 2018-03-17 19:00 | DS ---
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 The patient came into my office, was complaining of severe pain to the left side of the body, mainly in the left lower extremity, and burning in addition with difficulty walking. So the patient was sent to the emergency room and was evaluated and the patient was admitted. The patient was complaining of dizziness. The patient was consulted with Dr. Nicole, neurologist, and Dr. Liao, beauty counselor. The patient had initial tests done including MRI of the brain that revealed no evidence of acute intracranial hemorrhage or infarct, but there was a large chronic infarct in the right posterior temporoparietal and watershed zone extending into the right basal ganglia. The patient has used several medications including high dose of Lyrica and also other medications. The patient started improving and the patient was supposed to go to rehab, but the patient has no time for rehab, so the patient will be discharged home accompanied with nephew in the office. Case was discussed and reviewed with Amanda Haider, the nurse practitioner. Eduard Singh MD
== END 2018-03-16 16:50 | disposition home or self-care (01) | DRG 57 ==
LOC: C.ER 17:33 → C.6T 21:53
PROVIDERS: ADMIT Specialist; ATTEND Specialist
DX: I69.398 Other sequelae of cerebral infarction (principal); G89.0 Central pain syndrome; I10 Essential (primary) hypertension; G95.20 Unspecified cord compression; M79.10 Myalgia, unspecified site; E10.51 Type 1 diabetes mellitus with diabetic peripheral angiopathy without gangrene; E10.9 Type 1 diabetes mellitus without complications; E78.00 Pure hypercholesterolemia, unspecified; R26.81 Unsteadiness on feet; M54.2 Cervicalgia; E03.9 Hypothyroidism, unspecified; Z79.4 Long term (current) use of insulin; Z85.3 Personal history of malignant neoplasm of breast; Z90.710 Acquired absence of both cervix and uterus; Z90.11 Acquired absence of right breast and nipple; E78.5 Hyperlipidemia, unspecified; F03.90 Unspecified dementia, unspecified severity, without behavioral disturbance, psychotic disturbance, mood disturbance, and anxiety; G93.89 Other specified disorders of brain; M40.50 Lordosis, unspecified, site unspecified; M48.00 Spinal stenosis, site unspecified; M47.9 Spondylosis, unspecified; Z79.84 Long term (current) use of oral hypoglycemic drugs; R29.6 Repeated falls; W19.XXXA Unspecified fall, initial encounter; Z87.01 Personal history of pneumonia (recurrent)